=== PATIENT | female | born 1945 | race Caucasian/White ===

== ENCOUNTER 2017-01-17 08:10 | Day surgery (SDC) | payer OTHER, MEDICARE ==
[2017-01-16 14:14] VITALS: BMI 36.8
[2017-01-17] MEDS ORDERED: LIDOCAINE HCL/PF 2% SDV 5ML VIAL ONE (09:08)
[2017-01-17] MEDS ORDERED: PROPOFOL 20 ML ONE ×2 (09:08)
[2017-01-17 09:38] VITALS: TEMP 97.4
[2017-01-17 10:30] VITALS: BP 114/65; PULSE 55
--- NOTE | 2017-01-18 14:07 | PATH ---
Surgical Pathology Report Patient Name: STEVAN IRAHETA [facility]. Rec. #: [id number] /Age/Gender: 1945 (Age: 71) / F Account: [id number] Location: ASU-ENDOSCOPY Taken: 01/17/2017 Received: 01/17/2017 Reported: 01/18/2017 Physicians: Tarun Mckeon M.D. Specimen(s) Received A: BX NORMAL DUODENUM B: BX ANTRUM & GASTRIC BODY C: BX GASTRIC CARDIA & HIATAL HERNIA D: BX GE JUNCTION & DISTAL ESOPHAGUS Clinical History Pre-bariatric surgery evaluation Normal duodenum, body and antrum nodular gastritis, bile reflux gastritis, gastric metaplasia, hiatal hernia with inflammation, inflammatory nodule cardia, r/omalignancy Final Diagnosis A. DUODENUM, BIOPSY: DUODENAL MUCOSA WITHOUT SIGNIFICANT PATHOLOGIC CHANGES. NO HISTOLOGIC EVIDENCE OF GLUTEN SENSITIVE ENTEROPATHY (CELIAC DISEASE). B. STOMACH, ANTRUM AND BODY, BIOPSY: GASTRIC ANTRAL AND OXYNTIC MUCOSA WITH MODERATE CHRONIC GASTRITIS WITH EXTENSIVE INTESTINAL METAPLASIA AND REACTIVE GASTROPATHY. NEGATIVE FOR DYSPLASIA. IMMUNOSTAIN FOR H. PYLORI IS NEGATIVE FOR ORGANISMS. C. CARDIA AND HIATAL HERNIA, BIOPSY: GASTRIC CARDIA-TYPE AND FOCALLY SQUAMOUS MUCOSA WITH MARKED CHRONIC INFLAMMATION, HYPERPLASTIC CHANGE AND FOCAL INTESTINAL METAPLASIA (SEE COMMENT). NEGATIVE FOR DYSPLASIA. IMMUNOSTAIN FOR H. PYLORI IS NEGATIVE FOR ORGANISMS. 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 Endoscopic correlations and follow up are suggested. D. GE JUNCTION AND DISTAL ESOPHAGUS, BIOPSY: SQUAMOUS EPITHELIUM WITH CHRONIC INFLAMMATION AND REFLUX TYPY CHANGES. NO COLUMNAR EPITHELIUM PRESENT (NO INTESTINAL METAPLASIA SLIGHT ESPINOZA'S ESOPHAGUS IDENTIFIED IN THE EXAMINED MATERIAL). Electronically Signed Simon Mcgowan M.D. Gross Description A. Received in formalin, labeled "biopsy normal duodenum" is a osorio, irregular portion of soft tissue measuring 0.4 cm in greatest dimension. The specimen is submitted in toto in one cassette. B. Received in formalin, labeled "biopsy antrum and gastric body" are 7 osorio, irregular portions of soft tissue ranging from 0.1-0.4 cm in greatest dimension. The specimens are submitted in toto in one cassette. C. Received in formalin, labeled "biopsy gastric cardia and hiatal hernia" are 2 osorio, irregular portions of soft tissue averaging 0.3 cm in greatest dimension. The specimens are submitted in toto in one cassette. D. Received in formalin, labeled "biopsy GE junction" are 2 osorio, irregular portions of soft tissue averaging 0.2 cm in greatest dimension. The specimens are submitted in toto in one cassette. 01/17/201701/17/2017
== END 2017-01-17 10:39 | disposition home or self-care (01) ==
LOC: JASU-ENDO 08:10
PROVIDERS: ATTEND Internal Medicine Gastroenterology
PROC: 0DB68ZX Excision of Stomach, Via Natural or Artificial Opening Endoscopic, Diagnostic (ICD-10-PCS; 2017-01-17)
PROC: 0DB58ZX Excision of Esophagus, Via Natural or Artificial Opening Endoscopic, Diagnostic (ICD-10-PCS; 2017-01-17)
PROC: 0DB98ZX Excision of Duodenum, Via Natural or Artificial Opening Endoscopic, Diagnostic (ICD-10-PCS; principal; 2017-01-17 09:00)
DX: Z01.818 Encounter for other preprocedural examination (principal); K29.70 Gastritis, unspecified, without bleeding; K44.9 Diaphragmatic hernia without obstruction or gangrene; K31.89 Other diseases of stomach and duodenum
CPT/HCPCS: 88305-TC; 88342-TC

== ENCOUNTER 2017-01-19 09:54 | Emergency (ER) | payer OTHER, MEDICARE ==
[2017-01-19 10:00] VITALS: TEMP 98.8; BMI 34.2
[2017-01-19] MEDS ORDERED: DEXAMETHASONE SOD PHOSPHATE 10 MG/1 ML VIAL IVPB ONE (10:27)
[2017-01-19] MEDS ORDERED: ONDANSETRON 4 MG/2 ML VIAL ONE (11:00)
--- NOTE | 2017-01-19 11:20 | PDOC ---
History of Present Illness - General Chief Complaint: Rash Stated Complaint: ALLERGIC REACTION Time Seen by Provider: 01/19/17 10:14 History Source: Patient Exam Limitations: No Limitations - History of Present Illness Initial Comments: 01/19/17 11:37 71-year-old female presents to the ED with complaints of generalized pruritic rash and feeling of flushness since this morning. Patient states yesterday he also had a MAXIMUM TEMPERATURE of 101.0. Patient states was placed on omeprazole by her gastrologist 3 days ago after having an endoscopy. 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 Patient denies any other lesions to affected area or similar raised areas. Patient states also did not get any vancomycin recently And has had endoscopy in the past but Prilosec. Timing/Duration: 1-3 hours Severity: moderate Associated Symptoms: reports: rash Past History - Past Medical History Allergies/Adverse Reactions: Allergies Allergy/AdvReac Type Severity Reaction Status Date / Time vancomycin AdvReac Verified 01/19/17 09:55 Home Medications: Ambulatory Orders Atenolol [Tenormin -] 50 mg PO DAILY 06/10/14 Rotigotine [Neupro] 4 mg TD DAILY 06/10/14 Furosemide 40 mg PO DAILY 08/16/16 Metformin HCl 500 mg PO DAILY 08/16/16 Multivitamin [Poly-Vitamin] 1 each PO DAILY 08/16/16 Cholecalciferol (Vitamin D3) [Vitamin D3] 2,000 unit PO DAILY 08/17/16 Pramipexole Di-HCl [Mirapex] 0.75 mg PO HS 08/17/16 Diphenhydramine HCl [Benadryl -] 25 mg PO Q8H PRN #12 capsule 01/19/17 Prednisone [Deltasone -] 40 mg PO DAILY #8 tablet 01/19/17 Ranitidine HCl [Zantac] 150 mg PO DAILY #14 tablet 01/19/17 Anemia: No Asthma: No Cancer: No Cardiac Disorders: Yes ("MILD" MURMUR SINCE CHILDHOOD) CVA: No COPD: No CHF: No Dementia: No Diabetes: No GI Disorders: Yes Disorders: No HTN: Yes Hypercholesterolemia: Yes Liver Disease: Yes (NONALCOHOLIC STEATOHEPATITIS;HEPATIC FIBROSIS;FATTY LIVER) Seizures: No Thyroid Disease: Yes (HYPOTHYROIDISM) - Surgical History Abdominal Surgery: No Appendectomy: Yes Cardiac Surgery: No Cholecystectomy: No Lung Surgery: No Neurologic Surgery: No Orthopedic Surgery: Yes (STACY KNEE REPLACEMENT STACY ROTATOR CUFF REPAIR) - Psycho/Social/Smoking Cessation Hx Suicidal Ideation: No Smoking History: Never smoked Have you smoked in the past 12 months: No Hx Alcohol Use: No Drug/Substance Use Hx: No Substance Use Type: None Hx Substance Use Treatment: No Patient Lives Alone: No Review of Systems - Review of Systems Able to Perform ROS?: Yes Constitutional: Yes: Fever (yesterday 101.0) HEENTM: No: Symptoms Reported Respiratory: No: Symptoms reported Cardiac (ROS): No: Symptoms Reported ABD/GI: No: Symptoms Reported : No: Symptoms Reported Musculoskeletal: No: Symptoms Reported Integumentary: Yes: Erythema, Flushing, Pruritus, Rash Neurological: No: Symptoms reported Endocrine: No: Symptoms Reported Hematologic/Lymphatic: No: Symptoms Reported *Physical Exam - Vital Signs Last Vital Signs Temp Pulse Resp BP Pulse Ox 98.8 F 71 20 145/74 98 01/19/17 09:56 01/19/17 09:56 01/19/17 09:56 01/19/17 09:56 01/19/17 09:56 - Physical Exam General Appearance: Yes: Nourished, Appropriately Dressed. No: Apparent Distress HEENT: positive: Pharynx Normal (no petechiae no erythema). negative: Pale Conjunctivae Neck: positive: Normal Thyroid, Supple. negative: Lymphadenopathy (R), Lymphadenopathy (L) Respiratory/Chest: positive: Lungs Clear, Normal Breath Sounds. negative: Respiratory Distress, Accessory Muscle Use, Stridor, Wheezing Cardiovascular: positive: Regular Rhythm, Regular Rate. negative: Murmur Vascular Pulses: Dorsalis-Pedis (R): 2+, Doralis-Pedis (L): 2+ Gastrointestinal/Abdominal: positive: Normal Bowel Sounds, Soft. negative: Distended, Tenderness Extremity: positive: Normal Capillary Refill, Normal Inspection, Normal Range of Motion Integumentary: positive: Erythema (bilateral arms, face and back), Petechiae ( generalized greater in the extremities) Neurologic: positive: Normal Mood/Affect, Motor Strength 5/5 ED Treatment Course - LABORATORY CBC & Chemistry Diagram: 01/19/17 11:33 01/19/17 11:33 - Medications Given in the ED: ED Medications Discontinued Medications Generic Name Dose Route Start Last Admin Trade Name Aren PRN Reason Stop Dose Admin Dexamethasone Sodium Phosphate 10 mg 01/19/17 10:27 01/19/17 10:44 Decadron Injection - IVPB 01/19/17 10:28 10 mg ONCE ONE Administration Diphenhydramine HCl 25 mg 01/19/17 10:27 01/19/17 10:44 Benadryl Injection - IVPB 01/19/17 10:28 25 mg ONCE ONE Administration Medical Decision Making - Medical Decision Making 01/19/17 12:05 Patient here for pruritic erythematous rash since this morning. Patient states started omeprazole yesterday prescribed by her director medical science after having had endoscopy done 3 days ago. Patient found to have generalized petechiae with erythema greater in the face and neck arms and back. Patient was given steroids and Benadryl in fast track and was sent back here for further evaluation. Patient concerning for DIC secondary to petechiae. Patient ordered coags, labs, playground monitor, and IV access. 01/19/17 14:15 Laboratory Tests 01/19/17 01/19/17 01/19/17 11:33 11:33 11:33 WBC 5.7 Hgb 14.1 Hct 42.4 Neutrophils % 77.5 D INR 0.97 Sodium 138 Potassium 4.0 Chloride 104 Carbon Dioxide 28 Anion Gap 6 L BUN 14 D Creatinine 0.9 Creat Clearance w eGFR > 60 Random Glucose 102 Calcium 8.5 Total Bilirubin 1.1 H D AST 25 D ALT 27 D Albumin 3.3 L Erythematous face and arms and neck has resolved but continues to back. Patient be ordered for prednisone. Case discussed with patient's director medical science, Dr. 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 Patient also be discharged home with prednisone and Benadryl. *DC/Admit/Observation/Transfer Diagnosis at time of Disposition: Allergic reaction Qualifiers: Encounter type: initial encounter Qualified Code(s): T78.40XA - Allergy, unspecified, initial encounter - Discharge Dispostion Disposition: HOME Condition at time of disposition: Improved - Prescriptions Prescriptions: Diphenhydramine HCl [Benadryl -] 25 mg PO Q8H PRN #12 capsule PRN Reason: For Itching Prednisone [Deltasone -] 40 mg PO DAILY #8 tablet Ranitidine HCl [Zantac] 150 mg PO DAILY #14 tablet - Referrals Referrals: Uli Hays MD [Primary Care Provider] - Tarun Mckeon MD [Staff Physician] - - Patient Instructions Printed Discharge Instructions: DI for General Allergic Reactions, DI for Adverse Drug Reaction -- Allergic Additional Instructions: Please take prednisone starting tomorrow since your given your first dose here in the ER. You may also take 25 mg of Benadryl every [address] Mckeon recommended Zantac to begin tomorrow and to follow-up in his office for EGD results.
[2017-01-19] MEDS ORDERED: ONDANSETRON 4 MG/2 ML VIAL IVPB ONE (11:26)
--- NOTE | 2017-01-19 11:26 | PDOC ---
History of Present Illness - General Chief Complaint: Rash Stated Complaint: ALLERGIC REACTION Time Seen by Provider: 01/19/17 10:14 History Source: Patient Exam Limitations: No Limitations - History of Present Illness Initial Comments: 01/19/17 11:21 71 yr female multiple medical problems presents to ER with c/o red rash, itchy started this AM. Pt reports fever 101 last night with chills. Pt recently started on omeprazole yesterday, post endoscopy Monday with . Pt states she has no chest pain no SOB. Timing/Duration: reports: changing over time, getting worse Severity: Yes: severe Location: reports: generalized Respiratory Risk Factors: reports: medications Associated Symptoms: reports: fever, flushing, rash Past History - Past Medical History Allergies/Adverse Reactions: Allergies Allergy/AdvReac Type Severity Reaction Status Date / Time vancomycin AdvReac Verified 01/19/17 09:55 Home Medications: Ambulatory Orders Atenolol [Tenormin -] 50 mg PO DAILY 06/10/14 Rotigotine [Neupro] 4 mg TD DAILY 06/10/14 Furosemide 40 mg PO DAILY 08/16/16 Metformin HCl 500 mg PO DAILY 08/16/16 Multivitamin [Poly-Vitamin] 1 each PO DAILY 08/16/16 Cholecalciferol (Vitamin D3) [Vitamin D3] 2,000 unit PO DAILY 08/17/16 Pramipexole Di-HCl [Mirapex] 0.75 mg PO HS 08/17/16 Diphenhydramine HCl [Benadryl -] 25 mg PO Q8H PRN #12 capsule 01/19/17 Prednisone [Deltasone -] 40 mg PO DAILY #8 tablet 01/19/17 Ranitidine HCl [Zantac] 150 mg PO DAILY #14 tablet 01/19/17 Anemia: No Asthma: No Cancer: No Cardiac Disorders: Yes ("MILD" MURMUR SINCE CHILDHOOD) CVA: No COPD: No CHF: No Dementia: No Diabetes: No GI Disorders: Yes Disorders: No HTN: Yes Hypercholesterolemia: Yes Liver Disease: Yes (NONALCOHOLIC STEATOHEPATITIS;HEPATIC FIBROSIS;FATTY LIVER) Seizures: No Thyroid Disease: Yes (HYPOTHYROIDISM) - Surgical History Abdominal Surgery: No Appendectomy: Yes Cardiac Surgery: No Cholecystectomy: No Lung Surgery: No Neurologic Surgery: No Orthopedic Surgery: Yes (STACY KNEE REPLACEMENT STACY ROTATOR CUFF REPAIR) - Psycho/Social/Smoking Cessation Hx Suicidal Ideation: No Smoking History: Never smoked Have you smoked in the past 12 months: No Hx Alcohol Use: No Drug/Substance Use Hx: No Substance Use Type: None Hx Substance Use Treatment: No Review of Systems - Review of Systems Able to Perform ROS?: Yes Is the patient limited [place] proficient: No Constitutional: Yes: See HPI Integumentary: Yes: Symptoms Reported, Rash *Physical Exam - Vital Signs Last Vital Signs Temp Pulse Resp BP Pulse Ox 98.8 F 71 20 145/74 98 01/19/17 09:56 01/19/17 09:56 01/19/17 09:56 01/19/17 09:56 01/19/17 09:56 - Physical Exam General Appearance: Yes: Nourished, Appropriately Dressed, Obese HEENT: positive: EOMI, CHRISSY, TMs Normal, Other (erythematous mucous membranes) Neck: positive: Supple Respiratory/Chest: positive: Lungs Clear, Normal Breath Sounds Cardiovascular: positive: Regular Rhythm, Regular Rate Extremity: positive: Normal Capillary Refill, Normal Inspection, Normal Range of Motion Integumentary: positive: Rash (generalised head to toe erythematous rash ), Other (petichiae upper arms at the AC) Neurologic: positive: Fully Oriented, Alert, Normal Mood/Affect, Normal Response , Motor Strength 02/03 ED Treatment Course - LABORATORY CBC & Chemistry Diagram: 01/19/17 11:33 01/19/17 11:33 - Medications Given in the ED: ED Medications Discontinued Medications Generic Name Dose Route Start Last Admin Trade Name Freq PRN Reason Stop Dose Admin Dexamethasone Sodium Phosphate 10 mg 01/19/17 10:27 01/19/17 10:44 Decadron Injection - IVPB 01/19/17 10:28 10 mg ONCE ONE Administration Diphenhydramine HCl 25 mg 01/19/17 10:27 01/19/17 10:44 Benadryl Injection - IVPB 01/19/17 10:28 25 mg ONCE ONE Administration Progress Note - Progress Note Progress Note: pt reports severe nausea after decadron and benadryl, will give zofran. Medical Decision Making - Medical Decision Making 01/19/17 11:27 cc: diffuse rash, fever 101 last night recently started omeprazole will transfer to the main ER for further workup possible SJS pt stable aware of pt states he had a phone call regarding this pt . pt placed to bed 11A per charge nurse Marisa. *DC/Admit/Observation/Transfer Diagnosis at time of Disposition: Allergic reaction - Discharge Dispostion Disposition: HOME Condition at time of disposition: Improved - Prescriptions Prescriptions: Diphenhydramine HCl [Benadryl -] 25 mg PO Q8H PRN #12 capsule PRN Reason: For Itching Prednisone [Deltasone -] 40 mg PO DAILY #8 tablet Ranitidine HCl [Zantac] 150 mg PO DAILY #14 tablet - Referrals Referrals: Uli Hays MD [Primary Care Provider] - Tarun Mckeon MD [Staff Physician] - - Patient Instructions Printed Discharge Instructions: DI for General Allergic Reactions, DI for Adverse Drug Reaction -- Allergic Additional Instructions: Please take prednisone starting tomorrow since your given your first dose here in the ER. You may also take 25 mg of Benadryl every [address] Mckeon recommended Zantac to begin tomorrow and to follow-up in his office for EGD results.
[2017-01-19 11:51] LABS: BASOPHIL 0.2 % (0-2.0); EOSINOPHIL 2.4 % (0-4.5); MCH 30.9 pg (25.7-33.7); MCHC 33.2 g/dl (32.0-36.0); MEAN CELL VOLUME 93.1 fl (80-96); MEAN PLT VOLUME 6.7 fl (7.5-11.1); NEUTROPHILS 77.5 % (42.8-82.8); PLATELET COUNT 234 K/MM3 (134-434); RDW 13.8 % (11.6-15.6); WHITE BLOOD COUNT 5.7 K/mm3 (4.0-10.0)
[2017-01-19 12:23] LABS: ALBUMIN 3.3 g/dl (3.4-5.0); ANION GAP 6 (8-16); CALCIUM 8.5 mg/dL (8.5-10.1); CO2 28 mmol/L (21-32); GLUCOSE,RANDOM 102 mg/dL (74-106)
[2017-01-19 12:27] LABS: ALK PHOS 70 U/L (45-117); BILIRUBIN,TOTAL 1.1 mg/dL (0.2-1.0); COCKROFT - GAULT 76.9335; CREATININE 0.9 mg/dL (0.55-1.02); INR 0.97 (0.82-1.09); PROTHROMBIN TIME (PATIENT) 10.7 SEC (9.98-11.88); SGOT/AST 25 U/L (15-37); SGPT/ALT 27 U/L (12-78); TOT PROT 6.4 g/dl (6.4-8.2)
[2017-01-19 12:29] LABS: ACTIVATED PTT 29.7 SECONDS (26.9-34.4)
[2017-01-19] MEDS ORDERED: predniSONE 20 MG TABLET (UD) PO ONE (14:17)
[2017-01-19] MEDS ORDERED: predniSONE 20 MG TABLET (UD) ONE (14:56)
[2017-01-19 15:15] VITALS: BP 136/74; PULSE 70
== END 2017-01-19 15:40 | disposition home or self-care (01) ==
LOC: JER 09:54 → JERFT 09:54 → JER 15:40
PROC: 3E033GC Introduction of Other Therapeutic Substance into Peripheral Vein, Percutaneous Approach (ICD-10-PCS; principal; 2017-01-19)
DX: T78.40XA Allergy, unspecified, initial encounter (principal)
CPT/HCPCS: 36415; 80053; 82784; 85025; 85610; 85730; 99284-25

== ENCOUNTER 2017-09-05 09:54 | Day surgery (SDC) | payer OTHER, MEDICARE ==
[2017-09-04 09:40] VITALS: BMI 32.5
[2017-09-05] MEDS ORDERED: LIDOCAINE 1%/EPI 1:100000 (20 ML MULTI DOSE VIAL) ONE (10:50)
[2017-09-05] MEDS ORDERED: ONDANSETRON 4 MG/2 ML VIAL IVPUSH PRN ×2 (10:52→12:26)
[2017-09-05] MEDS ORDERED: IBUPROFEN 800 MG/8 ML IJ IVPB PRN (10:52)
[2017-09-05] MEDS ORDERED: oxyCODONE HCL 5 MG TABLET PO PRN ×2 (10:52→12:26)
[2017-09-05] MEDS ORDERED: LACTATED RINGERS SOLUTION 1,000 ML IV SCH ×2 (11:00→12:30)
[2017-09-05] MEDS ORDERED: VASOPRESSIN 20 UNITS/ML VIAL IV ONE ×2 (11:18→11:28)
--- NOTE | 2017-09-05 11:23 | OP ---
Operative Note - Note: Operative Date: 09/05/17 Pre-Operative Diagnosis: stress incontinence Operation: mid urethral sling placement Post-Operative Diagnosis: Same as Pre-op Surgeon: Duc Tristan MD. Anesthesia: General Drains & Tubes with Location: white catheter Operative Report Dictated: Yes
[2017-09-05] MEDS ORDERED: LIDOCAINE HCL/PF 2% SDV 5ML VIAL ONE (11:28)
[2017-09-05] MEDS ORDERED: ROCURONIUM BROMIDE 50 MG/5 ML VIAL ONE (11:29)
[2017-09-05] MEDS ORDERED: PROPOFOL 20 ML ONE (11:29)
[2017-09-05] MEDS ORDERED: fentaNYL CITRATE 250 MCG/5 ML VIAL ONE (11:29)
[2017-09-05] MEDS ORDERED: ceFAZolin SODIUM 1 GM VIAL IVPB ONE (11:45)
[2017-09-05] MEDS ORDERED: MIDAZOLAM HCL 2 MG/2 ML SINGLE DOSE VIAL ONE (11:46)
[2017-09-05] MEDS ORDERED: PROMETHAZINE HCL 25 MG/1 ML VIAL IVPB PRN (12:26)
[2017-09-05 14:32] VITALS: TEMP 98.2
[2017-09-05 17:43] LABS: MCH 30.9 pg (25.7-33.7); MCHC 33.1 g/dl (32.0-36.0); MEAN CELL VOLUME 93.4 fl (80-96); MEAN PLT VOLUME 7.1 fl (7.5-11.1); PLATELET COUNT 253 K/MM3 (134-434)
[2017-09-05 19:19] VITALS: BP 114/58; PULSE 70
--- NOTE | 2017-09-06 08:46 | OP ---
DATE OF OPERATION: 09/05/2017 PREOPERATIVE DIAGNOSIS: Stress incontinence. POSTOPERATIVE DIAGNOSIS: Stress incontinence. PROCEDURE: Midurethral sling placement. HISTORY: This is a very pleasant 72-year-old female with a history of stress incontinence. On preop evaluation she was found to have a leak-point pressure of approximately 60 mmHg. We also discussed the fact that she had a large posterior and anterior defect which would require a cystocele and rectocele and enterocele repair, which would require a much more involved surgery. The patient above-stated procedure and defer any treatment of the pelvic prolapse. All questions were answered. Risks and benefits were clearly discussed with the patient. BRIEF OPERATIVE NOTE: The patient was brought into the operating room and placed in supine position. Once general anesthesia was administered, intravenous antibiotics were given. The patient was transferred to dorsal lithotomy position, prepped and draped in sterile fashion. At this time an incision was made approximately 1 cm proximal to the meatus. The anterior vaginal wall was dissected free from the perivesical tissue. Lateral space was created to expose the endopelvic fascia. This was accomplished using blunt and minimal sharp dissection. At this time the Altis sling was placed in standard fashion. A clamp was used to create some space between the sling and the urethra without tension. There was no evidence of active bleeding. She sling was secured in place. At this time a 2-0 Vicryl was used to close the anterior vaginal wall. Please note that a Liang catheter was placed to straight drainage and then suction drainage at the initial point of the procedure. Vaginal packing was applied. The patient was then brought to recovery room in stable and satisfactory condition. HUMERA CARTER M.D. [id number]
--- NOTE | 2017-09-06 15:54 | PATH ---
Surgical Pathology Report Patient Name: STEVAN IRAHETA Med. Rec. #: [id number] /Age/Gender: 1945 (Age: 72) / F Account: [id number] Location: [facility] SURGICAL Taken: 09/05/2017 Received: 09/05/2017 Reported: 09/06/2017 Physicians: Duc Tristan M.D. Specimen(s) Received ANTERIOR VAGINAL MUCOSA Clinical History incontinence Final Diagnosis Anterior vaginal mucosa, resection: Vaginal (squamous) mucosa with no significant pathologic findings. Electronically Signed Brenda Perez M.D. Gross Description Received in formalin labeled "anterior vaginal mucosa," is a 1.4 x 0.9 x 0.7 cm pink-osorio, irregular portion of soft tissue, consistent with vaginal mucosa. [employer] sections are submitted in one cassette. /09/05/201709/05/2017
== END 2017-09-05 18:40 | disposition home or self-care (01) ==
LOC: JASU-SURG 09:54
PROVIDERS: ATTEND Urology
PROC: 0TSD0ZZ Reposition Urethra, Open Approach (ICD-10-PCS; principal; 2017-09-05 12:00)
DX: N39.3 Stress incontinence (female) (male) (principal)
CPT/HCPCS: 36415; 85027; 88302-TC

== ENCOUNTER 2019-07-03 14:15 | Emergency (ER) | payer OTHER, BC ==
[2019-07-03] MEDS ORDERED: KETOROLAC TROMETHAMINE 30 MG/1 ML VIAL IM ONE (14:20)
--- NOTE | 2019-07-03 14:20 | PDOC ---
Rapid Medical Evaluation Time Seen by Provider: 07/03/19 14:17 Medical Evaluation: Allergies Allergy/AdvReac Type Severity Reaction Status Date / Time vancomycin AdvReac Verified 09/05/17 10:24 07/03/19 14:17 CC: lower back pain s/p bending 3 days ago PE: No focal findings Orders: toradol Patient will proceed to ER for further evaluation. Discharge Disposition - Diagnosis Back pain - Referrals - Patient Instructions - Post Discharge Activity
[2019-07-03 14:22] VITALS: BP 113/49; PULSE 65; TEMP 98.4; BMI 34.0
[2019-07-03] MEDS ORDERED: KETOROLAC TROMETHAMINE 30 MG/1 ML VIAL ONE (15:05)
[2019-07-03] MEDS ORDERED: METHOCARBAMOL 500 MG TABLET PO ONE (15:13)
[2019-07-03] MEDS ORDERED: LIDOCAINE 5% TOPICAL PATCH TP ONE (15:13)
--- NOTE | 2019-07-03 15:18 | PDOC ---
History of Present Illness - General Chief Complaint: Back Pain Stated Complaint: LOWER BACK PAIN RIGHT SIDE SI Time Seen by Provider: 07/03/19 14:17 History Source: Patient Exam Limitations: No Limitations Past History - Travel Traveled outside of the country in the last 30 days: No Close contact w/someone who was outside of country & ill: No - Past Medical History Allergies/Adverse Reactions: Allergies Allergy/AdvReac Type Severity Reaction Status Date / Time vancomycin AdvReac Verified 07/03/19 14:22 Home Medications: Ambulatory Orders Atenolol [Tenormin -] 50 mg PO DAILY 06/10/14 Rotigotine [Neupro] 4 mg TD DAILY 06/10/14 Furosemide 40 mg PO DAILY 08/16/16 Multivitamin [Poly-Vitamin] 1 each PO DAILY 08/16/16 metFORMIN HCL [Metformin HCl] 500 mg PO DAILY 08/16/16 Pramipexole Di-HCl [Mirapex] 0.75 mg PO HS 08/17/16 Ibandronate Sodium 150 mg PO MONTHLY 09/04/17 Ranitidine HCl [Zantac] 150 mg PO PRN PRN 09/04/17 Methocarbamol [Robaxin -] 500 mg PO BID #14 tablet 07/03/19 Naproxen [Naprosyn -] 500 mg PO BID #14 tablet 07/03/19 Anemia: No Asthma: No Cancer: No Cardiac Disorders: Yes ("MILD" MURMUR SINCE CHILDHOOD) CVA: No COPD: No CHF: No Dementia: No Diabetes: No GI Disorders: Yes Disorders: No HTN: Yes Hypercholesterolemia: Yes Liver Disease: Yes (NONALCOHOLIC STEATOHEPATITIS;HEPATIC FIBROSIS;FATTY LIVER) Seizures: No Thyroid Disease: Yes (HYPOTHYROIDISM) - Surgical History Abdominal Surgery: No Appendectomy: Yes Cardiac Surgery: No Cholecystectomy: No Lung Surgery: No Neurologic Surgery: No Orthopedic Surgery: Yes (STACY KNEE REPLACEMENT STACY ROTATOR CUFF REPAIR) - Immunization History Immunization Up to Date: Yes - Psycho Social/Smoking Cessation Hx Smoking History: Never smoked Have you smoked in the past 12 months: No Information on smoking cessation initiated: No Hx Alcohol Use: No Drug/Substance Use Hx: No Substance Use Type: None Hx Substance Use Treatment: No Review of Systems - Review of Systems Able to Perform ROS?: Yes Comments:: 07/03/19 15:27 CONSTITUTIONAL: Absent: fever, chills, diaphoresis, generalized weakness, malaise, loss of appetite GASTROINTESTINAL: Absent: abdominal pain, abdominal distension, nausea, vomiting, diarrhea, constipation, melena, hematochezia GENITOURINARY: Absent: dysuria, frequency, urgency, hesitancy, hematuria, flank pain, genital pain MUSCULOSKELETAL: Present: R low back pain Absent: arthralgia, joint swelling SKIN: Absent: rash, itching, pallor NEUROLOGIC: Absent: headache, focal weakness or paresthesias, dizziness, unsteady gait, seizure, mental status changes, bladder or bowel incontinence PSYCHIATRIC: Absent: anxiety, depression, suicidal or homicidal ideation, hallucinations. Is the patient limited [place] proficient: No *Physical Exam - Vital Signs Last Vital Signs Temp Pulse Resp BP Pulse Ox 98.4 F 65 19 113/49 L 95 07/03/19 14:18 07/03/19 14:18 07/03/19 14:18 07/03/19 14:18 07/03/19 14:18 - Physical Exam Comments: 07/03/19 15:28 GENERAL: Well developed, well nourished. Awake and alert. No acute distress. NECK: Supple. Full ROM. No JVD. Carotid pulses 2+ and symmetric, without bruits. No thyromegaly. No lymphadenopathy. ABDOMINAL: Soft. Non-tender. Non-distended. No rebound or guarding. No organomegaly. Normoactive bowel sounds. MUSCULOSKELETAL TTP of the R lateral paraspinous muscles, L3-L5, with palpable knot consistent with muscle spasm. (-) straight leg raise testing. No midline tenderness. Normal range of motion at all joints. No bony deformities or tenderness. No CVA tenderness. EXTREMITIES: No cyanosis. No clubbing. No edema. No calf tenderness. SKIN: Warm and dry. Normal capillary refill. No rashes. No jaundice. NEUROLOGICAL: Alert, awake, appropriate. Cranial nerves 2-12 intact. No deficits to light touch and temperature in face, upper extremities and lower extremities. No motor deficits in the in face, upper extremities and lower extremities. Normoreflexic in the upper and lower extremities. Normal speech. Toes are down- going bilaterally. Gait is normal without ataxia. PSYCHIATRIC: Cooperative. Good eye contact. Appropriate mood and affect. Medical Decision Making - Medical Decision Making 07/03/19 15:28 The patient is a 74-year-old female who presents to the ER today for right lower back pain. She states the pain started 3 days ago when she stood up from washing her tub. She states she twisted her back and noticed the pain started. She states the pain is gotten increasingly worse over the past 3 days. She states the hydrocodone last night before bed which helped with her pain. She states that now it hurts to walk or stand for too long. Denies fevers, chills, numbness and tingling and weakness in the affected extremities, saddle anesthesia and bladder bowel incontinence. A/P: Low back pain -Pt with TTP of the R lateral paraspinous muscles, L3-L5, with palpable knot consistent with muscle spasm. (-) straight leg raise testing. No midline tenderness. -No trauma, or fever. No saddle anesthesia or bladder/bowel incontinence. No CVA tenderness. -Pt is neurologically intact on exam with no focal findings. -X-ray shows hardware in L5-L3 s/p laminectomy 5 years ago. No new or acute findings. -Toradol given with relief of symptoms -DC home. Ortho follow up given for if symptoms do not resolve. -I discussed the physical exam findings, ancillary test results and final diagnoses with the patient. I answered all of the patient's questions. The patient was satisfied with the care received and felt comfortable with the discharge plan and treatment plan. The Patient agrees to follow up with the primary care physician/specialist within 24-72 hours. Return precautions were given. Discharge - Discharge Information Problems reviewed: Yes Clinical Impression/Diagnosis: Back pain Qualifiers: Back pain location: low back pain Chronicity: acute Back pain laterality: right Sciatica presence: without sciatica Qualified Code(s): M54.5 - Low back pain Condition: Stable Disposition: HOME - Admission No - Follow up/Referral Referrals: Uli Hays MD [Primary Care Provider] - Chas Echols MD, FAANS [Staff Physician] - - Patient Discharge Instructions Patient Printed Discharge Instructions: DI for Low Back Pain Additional Instructions: You have low back pain due to a muscle spasm. Please take the naproxen twice a day starting tomorrow. You are given a long-acting anti-inflammatory in the ER today. You were also prescribed Robaxin. Please take this medication twice a day. Do not drive after taking this medication as it may make you sleepy. You may use warm compresses on your back to help with her symptoms. Please follow- up with your primary care doctor. If your symptoms do not resolve in 3-5 days, follow-up with orthopedics. A referral has been provided for you. Return to the emergency department if you have worsening back pain, bladder or bowel incontinence, numbness and tingling in her legs, changes in the way you walk, or any new or worsening symptoms. - Post Discharge Activity
[2019-07-03] MEDS ORDERED: METHOCARBAMOL 500 MG TABLET ONE ×2 (15:21→15:40)
[2019-07-03] MEDS ORDERED: LIDOCAINE 5% TOPICAL PATCH ONE (15:21)
== END 2019-07-03 15:47 | disposition home or self-care (01) ==
LOC: JERFT 14:15
PROC: 3E0233Z Introduction of Anti-inflammatory into Muscle, Percutaneous Approach (ICD-10-PCS; principal; 2019-07-03)
DX: M54.5 Low back pain (principal); Z88.1 Allergy status to other antibiotic agents; R01.1 Cardiac murmur, unspecified; I10 Essential (primary) hypertension; E78.00 Pure hypercholesterolemia, unspecified; E03.9 Hypothyroidism, unspecified; K76.0 Fatty (change of) liver, not elsewhere classified; K62.9 Disease of anus and rectum, unspecified; Z79.84 Long term (current) use of oral hypoglycemic drugs
CPT/HCPCS: 72100-TC-FY; 99281-25

== ENCOUNTER 2021-12-07 13:47 | Emergency (ER) | payer OTHER ==
[2021-12-07 14:03] VITALS: BP 136/60; PULSE 66; TEMP 98.6; BMI 33.9
[2021-12-07] MEDS ORDERED: ACETAMINOPHEN 325 MG TABLET (FP) PO ONE (17:44)
[2021-12-07] MEDS ORDERED: ACETAMINOPHEN 500 MG TABLET (FP) ONE (17:50)
== END 2021-12-07 20:32 | disposition home or self-care (01) ==
LOC: JER 13:47
DX: M54.2 Cervicalgia (principal); V89.2XXA Person injured in unspecified motor-vehicle accident, traffic, initial encounter
CPT/HCPCS: 70450-TC; 71250-TC; 72125-TC; 93005; 93010; 99285-25

== ENCOUNTER 2022-02-26 18:46 | Inpatient (IN) | payer OTHER ==
[2022-02-26] MEDS ORDERED: ACETAMINOPHEN 1000 MG/100 ML BAG IVPB ONE (19:52)
[2022-02-26] MEDS ORDERED: ACETAMINOPHEN INJECTION 100 ML IVPB ONE (19:55)
[2022-02-26] MEDS ORDERED: AZITHROMYCIN IVPB 500 MG in DEXTROSE 5%-WATER - 250 ML IVPB ONE (20:27)
[2022-02-26] MEDS ORDERED: CEFTRIAXONE 1 GM in DEXTROSE 5%-WATER - 100 ML IVPB ONE (20:27)
[2022-02-26 20:30] LABS: BASO % 0.4 % (0-2.0); EOS % 0.5 % (0-4.5); HEMATOCRIT 40.9 % (32.4-45.2); HEMOGLOBIN 13.9 GM/dL (10.7-15.3); LYMPH % 16.4 % (8-40); MCH 30.8 pg (25.7-33.7); MCHC 34.1 g/dl (32.0-36.0); MEAN CELL VOLUME 90.4 fl (80-96); MEAN PLT VOLUME 6.8 fl (7.5-11.1); MONO % 11.2 % (3.8-10.2); NEUT % 71.5 % (42.8-82.8); PLATELET COUNT 231 10^3/uL (134-434); RBC 4.52 M/mm3 (3.60-5.2); RDW 14.2 % (11.6-15.6); WHITE BLOOD COUNT 4.9 K/mm3 (4.0-10.0)
[2022-02-26 20:34] LABS: VENOUS BASE EXCESS -1.3 mmol/L (-2-2); VENOUS O2 SATURATION 56.1 % (70-80); VENOUS PCO2 41.3 mmHg (38-52); VENOUS PH 7.379 (7.310-7.410)
[2022-02-26 20:41] LABS: INR 1.05 (0.83-1.09); PROTHROMBIN TIME (PATIENT) 12.1 SEC (9.7-13.0)
[2022-02-26 20:44] LABS: ACTIVATED PTT 31.4 SECONDS (25.2-36.5)
[2022-02-26] MEDS ORDERED: AZITHROMYCIN IVPB 500 MG/250 ML BAG IVPB ONE (20:49)
[2022-02-26] MEDS ORDERED: CEFTRIAXONE 1 GM/50 ML BAG ONE (20:49)
[2022-02-26 20:58] LABS: CHLORIDE 105 mmol/L (98-107); SODIUM 139 mmol/L (136-145)
[2022-02-26 21:01] LABS: ALBUMIN 3.2 g/dl (3.4-5.0); ANION GAP 7 MMOL/L (8-16); BLOOD UREA NITROGEN 8.7 mg/dL (7-18); CO2 27 mmol/L (21-32); GLUCOSE,RANDOM 83 mg/dL (74-106)
[2022-02-26 21:04] LABS: CREATININE 0.8 mg/dL (0.55-1.3); SGOT/AST 28 U/L (15-37); SGPT/ALT 26 U/L (13-61)
[2022-02-26 21:05] LABS: TOT PROT 6.5 g/dl (6.4-8.2)
[2022-02-26 21:07] LABS: ALK PHOS 66 U/L (45-117)
[2022-02-26] MEDS ORDERED: DEXAMETHASONE SOD PHOSPHATE 20 MG/5 ML VIAL IVPB ONE (21:15)
[2022-02-26] MEDS ORDERED: DEXAMETHASONE SOD PHOSPHATE 10 MG/1 ML VIAL ONE (21:26)
[2022-02-26] MEDS ORDERED: REMDESIVIR 200 MG in SODIUM CHLORIDE 250 ML IVPB ONE (22:32)
[2022-02-26] MEDS ORDERED: ALBUTEROL SO4 HFA INHALER IH PRN (22:32)
[2022-02-26] MEDS ORDERED: HEPARIN NA (PORCINE) 5,000 UNITS/ML 1ML VIAL ONE (22:35)
[2022-02-26] MEDS: HEPARIN NA (PORCINE) 5,000 UNITS/ML 1ML VIAL SQ SCH (22:44)
[2022-02-26 22:50] LABS: EPI CELLS >36 /uL (0-25.1); HYALINE CASTS 27 /uL (0-3.1); PH,URINE 5.5 (5.0-8.0); URINE APPEARANCE TURBID; URINE BACTERIA 8085 /uL (0-1359); URINE BILIRUBIN NEGATIVE (NEGATIVE); URINE COLOR YELLOW; URINE GLUCOSE (UA) NEGATIVE (NEGATIVE); URINE KETONE NEGATIVE (NEGATIVE); URINE LEUK ESTERASE 2+ (NEGATIVE); URINE NITRITE NEGATIVE (NEGATIVE); URINE PROTEIN TRACE (NEGATIVE); URINE RBC 28 /uL (0-23.9); URINE UROBILINOGEN 0.2 mg/dL (0.2-1.0); URINE WBC 738 /uL (0-25.8)
[2022-02-26] MEDS ORDERED: PARoxetine HCL 10 MG TABLET PO SCH ×2 (22:50→22:55)
[2022-02-26 22:59] LABS: BLOOD UREA NITROGEN 10.2 mg/dL (7-18); CALCIUM 8.6 mg/dL (8.5-10.1)
[2022-02-27] MEDS: BUDESONIDE/FORMETEROL FUMARATE 80/4.5 mcg INHALER IH SCH ×3 (00:06→21:18)
[2022-02-27 02:00] VITALS: BMI 34.7
[2022-02-27] MEDS ORDERED: ACETAMINOPHEN 325 MG TABLET (FP) PO PRN (03:26)
[2022-02-27] MEDS: HEPARIN NA (PORCINE) 5,000 UNITS/ML 1ML VIAL SQ SCH ×3 (06:38→21:17)
[2022-02-27] MEDS: INSULIN SLIDING SCALE (NOVOLOG) 1 VIAL SQ SCH ×3 (06:38→16:30)
[2022-02-27] MEDS ORDERED: DEXTROSE 5%-WATER - 50 ML IVPB ONE (09:16)
[2022-02-27] MEDS ORDERED: cefTRIAXone SODIUM 1 GM VIAL ONE (09:16)
[2022-02-27] MEDS: ATENOLOL 50 MG TABLET (FP) PO SCH (09:31)
[2022-02-27] MEDS: FUROSEMIDE 40 MG TABLET (FP) PO SCH (09:31)
[2022-02-27] MEDS: DEXAMETHASONE SOD PHOSPHATE 10 MG/1 ML VIAL IVPUSH SCH (09:31)
[2022-02-27] MEDS: FAMOTIDINE 20 MG/50 ML IVPB 20 MG/50 ML MG IVPB SCH ×2 (09:31→21:17)
[2022-02-27] MEDS: PRAMIPEXOLE DIHYDROCHLORIDE 0.5 MG TABLET PO SCH (09:32)
[2022-02-27] MEDS: CEFTRIAXONE 1 GM in DEXTROSE 5%-WATER - 50 ML IVPB SCH (09:43)
[2022-02-27 09:48] LABS: BASO % 0.1 % (0-2.0); HEMATOCRIT 43.6 % (32.4-45.2); HEMOGLOBIN 14.6 GM/dL (10.7-15.3); LYMPH % 13.1 % (8-40); MCH 30.6 pg (25.7-33.7); MCHC 33.4 g/dl (32.0-36.0); MEAN CELL VOLUME 91.6 fl (80-96); MEAN PLT VOLUME 7.3 fl (7.5-11.1); MONO % 5.6 % (3.8-10.2); NEUT % 81.2 % (42.8-82.8); PLATELET COUNT 245 10^3/uL (134-434); RBC 4.76 M/mm3 (3.60-5.2); RDW 14.1 % (11.6-15.6); WHITE BLOOD COUNT 5.5 K/mm3 (4.0-10.0)
[2022-02-27] MEDS ORDERED: AZITHROMYCIN IVPB 500 MG in DEXTROSE 5%-WATER - 250 ML IVPB SCH (10:00)
[2022-02-27 10:08] LABS: ALBUMIN 3.6 g/dl (3.4-5.0); BLOOD UREA NITROGEN 12.4 mg/dL (7-18)
[2022-02-27 10:10] LABS: CALCIUM 8.7 mg/dL (8.5-10.1); MAGNESIUM 2.3 mg/dL (1.8-2.4)
[2022-02-27 10:11] LABS: CREATININE 0.9 mg/dL (0.55-1.3); PHOSPHOROUS 3.8 mg/dL (2.5-4.9)
[2022-02-27 10:12] LABS: BILIRUBIN,TOTAL 0.6 mg/dL (0.2-1)
[2022-02-27 10:13] LABS: TOT PROT 6.9 g/dl (6.4-8.2)
[2022-02-27] MEDS ORDERED: AZITHROMYCIN IVPB 500 MG/250 ML BAG IVPB SCH (11:10)
[2022-02-27] MEDS ORDERED: INSULIN (NOVOLOG) ASPART 100 UNITS/ML 10ML VIAL ONE (11:24)
[2022-02-27] MEDS: guaiFENesin/D-M SUGAR-FREE/ACLHOL-FREE 118 ML BOTTLE PO PRN ×2 (11:32→18:16)
[2022-02-27] MEDS: PRAMIPEXOLE DIHYDROCHLORIDE 0.25 MG TABLET PO SCH (21:17)
[2022-02-27] MEDS: AZITHROMYCIN IVPB 500 MG/250 ML BAG IVPB SCH (21:51)
[2022-02-27] MEDS ORDERED: PARoxetine HCL 10 MG TABLET PO SCH (22:00)
[2022-02-27] MEDS: REMDESIVIR 100 MG in SODIUM CHLORIDE 250 ML IVPB SCH (23:00)
[2022-02-28] MEDS: HEPARIN NA (PORCINE) 5,000 UNITS/ML 1ML VIAL SQ SCH ×3 (06:09→21:41)
[2022-02-28] MEDS: INSULIN SLIDING SCALE (NOVOLOG) 1 VIAL SQ SCH ×3 (06:10→17:18)
[2022-02-28] MEDS: guaiFENesin/D-M SUGAR-FREE/ACLHOL-FREE 118 ML BOTTLE PO PRN (06:18)
[2022-02-28] MEDS ORDERED: cefTRIAXone SODIUM 1 GM VIAL ONE (09:58)
[2022-02-28] MEDS ORDERED: DEXTROSE 5%-WATER - 50 ML IVPB ONE (09:58)
[2022-02-28] MEDS: FAMOTIDINE 20 MG/50 ML IVPB 20 MG/50 ML MG IVPB SCH ×2 (10:01→21:42)
[2022-02-28] MEDS: FUROSEMIDE 40 MG TABLET (FP) PO SCH (10:01)
[2022-02-28] MEDS: PRAMIPEXOLE DIHYDROCHLORIDE 0.5 MG TABLET PO SCH (10:01)
[2022-02-28] MEDS: CEFTRIAXONE 1 GM in DEXTROSE 5%-WATER - 50 ML IVPB SCH (10:01)
[2022-02-28] MEDS: DEXAMETHASONE SOD PHOSPHATE 10 MG/1 ML VIAL IVPUSH SCH (10:01)
[2022-02-28] MEDS: ATENOLOL 50 MG TABLET (FP) PO SCH (10:01)
[2022-02-28] MEDS: BUDESONIDE/FORMETEROL FUMARATE 80/4.5 mcg INHALER IH SCH ×2 (10:19→21:42)
[2022-02-28 11:17] LABS: HEMATOCRIT 43.3 % (32.4-45.2); HEMOGLOBIN 14.4 GM/dL (10.7-15.3); MCH 30.3 pg (25.7-33.7); MCHC 33.2 g/dl (32.0-36.0); MEAN CELL VOLUME 91.2 fl (80-96); MEAN PLT VOLUME 7.2 fl (7.5-11.1); PLATELET COUNT 267 10^3/uL (134-434); RBC 4.75 M/mm3 (3.60-5.2); WHITE BLOOD COUNT 9.4 K/mm3 (4.0-10.0)
[2022-02-28 11:34] LABS: BLOOD UREA NITROGEN 18.7 mg/dL (7-18)
[2022-02-28 11:37] LABS: CREATININE 0.9 mg/dL (0.55-1.3)
[2022-02-28] MEDS: PRAMIPEXOLE DIHYDROCHLORIDE 0.25 MG TABLET PO SCH (21:42)
[2022-02-28] MEDS: AZITHROMYCIN IVPB 500 MG/250 ML BAG IVPB SCH (22:23)
[2022-02-28] MEDS: REMDESIVIR 100 MG in SODIUM CHLORIDE 250 ML IVPB SCH (23:37)
[2022-03-01] MEDS: HEPARIN NA (PORCINE) 5,000 UNITS/ML 1ML VIAL SQ SCH ×3 (06:22→22:43)
[2022-03-01] MEDS: INSULIN SLIDING SCALE (NOVOLOG) 1 VIAL SQ SCH ×3 (06:25→16:36)
[2022-03-01 09:58] LABS: HEMATOCRIT 41.4 % (32.4-45.2); HEMOGLOBIN 14.1 GM/dL (10.7-15.3); MCH 30.7 pg (25.7-33.7); MEAN CELL VOLUME 90.2 fl (80-96); MEAN PLT VOLUME 7.4 fl (7.5-11.1); PLATELET COUNT 268 10^3/uL (134-434); RBC 4.59 M/mm3 (3.60-5.2); RDW 14.3 % (11.6-15.6)
[2022-03-01 10:24] LABS: BLOOD UREA NITROGEN 22.4 mg/dL (7-18)
[2022-03-01 10:28] LABS: CREATININE 0.8 mg/dL (0.55-1.3)
[2022-03-01] MEDS ORDERED: cefTRIAXone SODIUM 1 GM VIAL ONE (10:40)
[2022-03-01] MEDS ORDERED: DEXTROSE 5%-WATER - 50 ML IVPB ONE (10:41)
[2022-03-01] MEDS: DEXAMETHASONE SOD PHOSPHATE 10 MG/1 ML VIAL IVPUSH SCH (10:46)
[2022-03-01] MEDS: ATENOLOL 50 MG TABLET (FP) PO SCH (10:48)
[2022-03-01] MEDS: FUROSEMIDE 40 MG TABLET (FP) PO SCH (10:48)
[2022-03-01] MEDS: FAMOTIDINE 20 MG/50 ML IVPB 20 MG/50 ML MG IVPB SCH ×2 (10:48→22:44)
[2022-03-01] MEDS: PRAMIPEXOLE DIHYDROCHLORIDE 0.5 MG TABLET PO SCH (10:48)
[2022-03-01] MEDS: CEFTRIAXONE 1 GM in DEXTROSE 5%-WATER - 50 ML IVPB SCH (10:48)
[2022-03-01] MEDS: BUDESONIDE/FORMETEROL FUMARATE 80/4.5 mcg INHALER IH SCH ×2 (10:55→22:44)
[2022-03-01 12:11] LABS: BILIRUBIN,DIRECT 0.1 mg/dL (0.0-0.2)
[2022-03-01 12:13] LABS: BILIRUBIN,TOTAL 0.4 mg/dL (0.2-1)
[2022-03-01] MEDS: guaiFENesin/D-M SUGAR-FREE/ACLHOL-FREE 118 ML BOTTLE PO PRN (13:32)
[2022-03-01] MEDS: PRAMIPEXOLE DIHYDROCHLORIDE 0.25 MG TABLET PO SCH (22:44)
[2022-03-01] MEDS: REMDESIVIR 100 MG in SODIUM CHLORIDE 250 ML IVPB SCH (23:29)
[2022-03-01] MEDS: AZITHROMYCIN IVPB 500 MG/250 ML BAG IVPB SCH (23:50)
[2022-03-02] MEDS: HEPARIN NA (PORCINE) 5,000 UNITS/ML 1ML VIAL SQ SCH ×2 (06:29→13:37)
[2022-03-02] MEDS: INSULIN SLIDING SCALE (NOVOLOG) 1 VIAL SQ SCH ×2 (06:29→12:18)
[2022-03-02 09:08] LABS: BASO % 0.1 % (0-2.0); EOS % 0.1 % (0-4.5); HEMATOCRIT 39.9 % (32.4-45.2); HEMOGLOBIN 13.4 GM/dL (10.7-15.3); LYMPH % 30.9 % (8-40); MCH 30.2 pg (25.7-33.7); MCHC 33.6 g/dl (32.0-36.0); MEAN PLT VOLUME 7.6 fl (7.5-11.1); MONO % 10.1 % (3.8-10.2); NEUT % 58.8 % (42.8-82.8); PLATELET COUNT 258 10^3/uL (134-434); RBC 4.44 M/mm3 (3.60-5.2); RDW 13.8 % (11.6-15.6); WHITE BLOOD COUNT 6.5 K/mm3 (4.0-10.0)
[2022-03-02 09:56] LABS: BILIRUBIN,TOTAL 0.6 mg/dL (0.2-1)
[2022-03-02 10:01] LABS: ALBUMIN 3.4 g/dl (3.4-5.0)
[2022-03-02 10:03] LABS: CREATININE 0.8 mg/dL (0.55-1.3)
[2022-03-02 10:04] LABS: BLOOD UREA NITROGEN 24.7 mg/dL (7-18)
[2022-03-02 10:05] LABS: TOT PROT 6.5 g/dl (6.4-8.2)
[2022-03-02] MEDS ORDERED: DEXTROSE 5%-WATER - 50 ML IVPB ONE (10:17)
[2022-03-02] MEDS ORDERED: cefTRIAXone SODIUM 1 GM VIAL ONE (10:17)
[2022-03-02] MEDS: PRAMIPEXOLE DIHYDROCHLORIDE 0.5 MG TABLET PO SCH (10:24)
[2022-03-02] MEDS: ATENOLOL 50 MG TABLET (FP) PO SCH (10:24)
[2022-03-02] MEDS: FUROSEMIDE 40 MG TABLET (FP) PO SCH (10:24)
[2022-03-02] MEDS: DEXAMETHASONE SOD PHOSPHATE 10 MG/1 ML VIAL IVPUSH SCH (10:24)
[2022-03-02] MEDS: CEFTRIAXONE 1 GM in DEXTROSE 5%-WATER - 50 ML IVPB SCH (10:25)
[2022-03-02] MEDS: FAMOTIDINE 20 MG/50 ML IVPB 20 MG/50 ML MG IVPB SCH (10:25)
[2022-03-02] MEDS: BUDESONIDE/FORMETEROL FUMARATE 80/4.5 mcg INHALER IH SCH (10:28)
[2022-03-02] MEDS ORDERED: REMDESIVIR 100 MG in SODIUM CHLORIDE 270 ML IVPB ONE (14:00)
[2022-03-02 14:34] VITALS: BP 102/55; PULSE 55; TEMP 98.7
== END 2022-03-02 17:16 | disposition home or self-care (01) | DRG 177 ==
LOC: JER 18:46 → JERBED 21:34 → J6S 02-27 01:45
PROVIDERS: ADMIT Hospitalist; ATTEND Internal Medicine
PROC: XW033E5 Introduction of Remdesivir Anti-infective into Peripheral Vein, Percutaneous Approach, New Technology Group 5 (ICD-10-PCS; principal; 2022-02-26)
DX: U07.1 COVID-19 (principal); J96.01 Acute respiratory failure with hypoxia; J12.82 Pneumonia due to coronavirus disease 2019; N39.0 Urinary tract infection, site not specified; E11.9 Type 2 diabetes mellitus without complications; G25.81 Restless legs syndrome; I10 Essential (primary) hypertension; L65.9 Nonscarring hair loss, unspecified; E03.9 Hypothyroidism, unspecified; K76.0 Fatty (change of) liver, not elsewhere classified; L40.9 Psoriasis, unspecified
CPT/HCPCS: 0241U-QW; 36415; 71045-TC-FY; 80048; 80053; 81003; 82247; 82248; 82550; 82553; 82803; 82962; 83605; 83735; 84100; 84450; 84460; 84484; 85025; 85027; 85610; 85730; 86850; 86900; 86901; 87040; 87077; 87086; 93005; 93010; 93971-TC; 94761; 99285-25; C9399; J1100; J1644

== ENCOUNTER 2022-06-13 06:08 | Inpatient (IN) | payer OTHER ==
[2022-06-09 15:47] VITALS: BMI 36.6
[~2022-06-13 06:08] MED LIST: TRANEXAMIC ACID 1000 MG/10 ML VIAL IVPB ONE; VANCOMYCIN 1,000 MG VIAL (RESTRICTED TO ID ONLY) IVPB ONE
[2022-06-13] MEDS ORDERED: CEFAZOLIN 2 GM in DEXTROSE 5%-WATER - 50 ML IVPB ONE (06:42)
[2022-06-13] MEDS ORDERED: MIDAZOLAM HCL 2 MG/2 ML SINGLE DOSE VIAL ONE (07:13)
[2022-06-13] MEDS ORDERED: PROPOFOL 40 ML ONE (07:13)
[2022-06-13] MEDS ORDERED: MAGNESIUM HYDROX 2400MG/30ML ORAL SUSPENSION 30 ML CUP PO PRN (07:24)
[2022-06-13] MEDS ORDERED: ONDANSETRON 4 MG/2 ML VIAL IVPUSH PRN ×2 (07:24→10:53)
[2022-06-13] MEDS ORDERED: MAG HYDROX/AL HYDROX/SIMETH 30 ML UNIT-DOSE CUP PO PRN (07:24)
[2022-06-13] MEDS ORDERED: LACTATED RINGERS SOLUTION 1,000 ML IV SCH ×2 (07:30→11:00)
[2022-06-13] MEDS ORDERED: TRANEXAMIC ACID 1000 MG/10 ML VIAL IVPUSH ONE (07:30)
[2022-06-13] MEDS ORDERED: ROPIVACAINE HCL/PF 100 MG/20 ML VIAL ONE (07:31)
[2022-06-13] MEDS ORDERED: VANCOMYCIN 1,000 MG VIAL (RESTRICTED TO ID ONLY) ONE (07:33)
[2022-06-13] MEDS ORDERED: ROCURONIUM BROMIDE 50 MG/5 ML SYRINGE ONE ×2 (07:33→07:34)
[2022-06-13] MEDS ORDERED: ceFAZolin SODIUM 1 GM VIAL ONE (08:53)
[2022-06-13] MEDS ORDERED: DEXAMETHASONE SOD PHOSPHATE 4 MG/1 ML VIAL ONE (08:53)
[2022-06-13] MEDS ORDERED: TRANEXAMIC ACID 1000 MG/10 ML VIAL IVPB ONE (09:45)
[2022-06-13] MEDS ORDERED: ACETAMINOPHEN INJECTION 100 ML IVPB ONE ×2 (09:47→10:23)
[2022-06-13] MEDS ORDERED: VANCOMYCIN 1,000 MG VIAL (RESTRICTED TO ID ONLY) IVPB ONE (09:52)
[2022-06-13] MEDS ORDERED: NEOSTIGMINE METHYLSULFATE 0.5 MG/1 ML - 10 ML MDV ONE (09:55)
[2022-06-13] MEDS ORDERED: GLYCOPYRROLATE 0.2 MG/1 ML VIAL ONE (09:57)
[2022-06-13] MEDS: FENTANYL CITRATE/PF 50 MCG/ML VIAL ONE ×2 (10:40→10:51)
[2022-06-13] MEDS ORDERED: oxyCODONE HCL 5 MG TABLET PO PRN ×2 (10:53)
[2022-06-13] MEDS: ACETAMINOPHEN 1000 MG/100 ML BAG IVPB ONE ×2 (10:57→13:10)
[2022-06-13] MEDS: KETOROLAC TROMETHAMINE 30 MG/1 ML VIAL IVPUSH SCH ×3 (11:12→17:18)
[2022-06-13] MEDS: MULTIVITAMINS (DAILY MVI) TABLET (FP) PO SCH (13:09)
[2022-06-13] MEDS: FLUTICASONE/UMECLIDIN/VILANTER(100-62.5-25 TRELEGY ELLIPTA) INAHLER IH SCH (13:10)
[2022-06-13] MEDS: INSULIN SLIDING SCALE (NOVOLOG) 1 VIAL SQ SCH ×3 (13:10→22:32)
[2022-06-13] MEDS: CEFAZOLIN SODIUM 2 GM in DEXTROSE 5%-WATER 100 ML IVPB SCH ×2 (16:55→23:47)
[2022-06-13] MEDS: ACETAMINOPHEN 1000 MG/100 ML BAG IVPB SCH ×2 (17:16→23:48)
[2022-06-13] MEDS ORDERED: ACETAMINOPHEN 1000 MG/100 ML BAG IVPB SCH (19:00)
[2022-06-13] MEDS ORDERED: PRAMIPEXOLE DIHYDROCHLORIDE 1 MG TABLET PO SCH (22:00)
[2022-06-13] MEDS: SENNOSIDES/DOCUSATE COMBO (SENNA PLUS) TABLET (UD) PO SCH (22:25)
[2022-06-13] MEDS: oxyCODONE HCL 10 MG SUSTAINED ACTING TABLET PO SCH (22:26)
[2022-06-14 06:23] VITALS: BP 91/43; PULSE 19; RESP 52; TEMP 97.9
[2022-06-14] MEDS: ACETAMINOPHEN 1000 MG/100 ML BAG IVPB SCH (07:15)
[2022-06-14] MEDS ORDERED: ASPIRIN 325 MG TABLET PO SCH (08:00)
[2022-06-14] MEDS: INSULIN SLIDING SCALE (NOVOLOG) 1 VIAL SQ SCH ×2 (08:10→13:26)
[2022-06-14 08:24] LABS: HEMATOCRIT 35.9 % (32.4-45.2); HEMOGLOBIN 12.4 G/dL (10.7-15.3); MCH 31.9 pg (25.7-33.7); MCHC 34.5 g/dl (32.0-36.0); MEAN CELL VOLUME 92.6 fl (80-96); MEAN PLT VOLUME 7.4 fl (7.5-11.1); PLATELET COUNT 196.2 10^3/uL (134-434); RBC 3.88 10^6/uL (3.60-5.2); RDW 14.3 % (11.6-15.6); WHITE BLOOD COUNT 7.4 10^3/uL (4.0-10.8)
[2022-06-14 08:30] LABS: CALCIUM 8.3 mg/dl (8.5-10); CREATININE 0.9 mg/dl (0.55-1.3)
[2022-06-14] MEDS ORDERED: BUPIVACAINE HCL/PF 0.5% (5 MG/ML) 30 ML VIAL IJ ONE (08:41)
[2022-06-14] MEDS ORDERED: DEXAMETHASONE SOD PHOSPHATE 10 MG/1 ML VIAL ONE (08:41)
[2022-06-14] MEDS: MULTIVITAMINS (DAILY MVI) TABLET (FP) PO SCH (09:34)
[2022-06-14] MEDS: SENNOSIDES/DOCUSATE COMBO (SENNA PLUS) TABLET (UD) PO SCH (09:35)
[2022-06-14] MEDS ORDERED: FUROSEMIDE 40 MG TABLET (FP) PO SCH (10:00)
[2022-06-14] MEDS ORDERED: ATENOLOL 50 MG TABLET (FP) PO SCH (10:00)
[2022-06-14] MEDS: oxyCODONE HCL 10 MG SUSTAINED ACTING TABLET PO SCH (13:25)
[2022-06-14] MEDS: FLUTICASONE/UMECLIDIN/VILANTER(100-62.5-25 TRELEGY ELLIPTA) INAHLER IH SCH (13:25)
== END 2022-06-14 14:40 | disposition home or self-care (01) | DRG 315 ==
LOC: FM/S 06:08
PROVIDERS: ADMIT Orthopaedic Surgery; ATTEND Orthopaedic Surgery
PROC: 0LS30ZZ Reposition Right Upper Arm Tendon, Open Approach (ICD-10-PCS; 2022-06-13)
PROC: 0RRJ00Z Replacement of Right Shoulder Joint with Reverse Ball and Socket Synthetic Substitute, Open Approach (ICD-10-PCS; principal; 2022-06-13 08:33)
DX: M19.011 Primary osteoarthritis, right shoulder (principal); M75.101 Unspecified rotator cuff tear or rupture of right shoulder, not specified as traumatic; M75.21 Bicipital tendinitis, right shoulder; E11.9 Type 2 diabetes mellitus without complications; I10 Essential (primary) hypertension; E78.5 Hyperlipidemia, unspecified; Z09 Encounter for follow-up examination after completed treatment for conditions other than malignant neoplasm; Z86.16 Personal history of COVID-19; G25.81 Restless legs syndrome; Z79.84 Long term (current) use of oral hypoglycemic drugs
CPT/HCPCS: 36415; 73030-TC-RT-FY; 80048; 82962; 85027; 88304-TC; 88311-TC; 94760; 97116-GP; 97162-GP; C1776; C1889; J1100

== ENCOUNTER 2022-06-15 18:15 | Inpatient (IN) | payer OTHER ==
[2022-06-15] MEDS ORDERED: SODIUM CHLORIDE 2,858 ML IV ONE (18:39)
[2022-06-15] MEDS ORDERED: CEFEPIME HCL/D5W 1 GM/50 ML BAG IVPB ONE (18:43)
[2022-06-15] MEDS ORDERED: CLINDAMYCIN 600MG PREMIX IVPB 600 MG/50 ML BAG IVPB ONE ×2 (18:43→19:01)
[2022-06-15] MEDS ORDERED: ACETAMINOPHEN 1000 MG/100 ML BAG IVPB ONE (18:59)
[2022-06-15] MEDS ORDERED: ACETAMINOPHEN INJECTION 100 ML IVPB ONE (19:01)
[2022-06-15 19:14] LABS: HEMATOCRIT 42.2 % (32.4-45.2); HEMOGLOBIN 14.8 G/dL (10.7-15.3); MCH 32.6 pg (25.7-33.7); MCHC 35.1 g/dl (32.0-36.0); MEAN CELL VOLUME 92.7 fl (80-96); MEAN PLT VOLUME 7.2 fl (7.5-11.1); PLATELET COUNT 215.9 10^3/uL (134-434); RBC 4.55 10^6/uL (3.60-5.2); RDW 14.6 % (11.6-15.6); WHITE BLOOD COUNT 8.2 10^3/uL (4.0-10.8)
[2022-06-15 19:20] LABS: INR 1.05 (0.83-1.09); PROTHROMBIN TIME (PATIENT) 12.1 SEC (9.7-13.0)
[2022-06-15 19:22] LABS: ACTIVATED PTT 28.6 SECONDS (25.2-36.5)
[2022-06-15 19:29] LABS: ALBUMIN 3.5 g/dl (3.4-5.0); CALCIUM 9.2 mg/dl (8.5-10); CREATININE 0.9 mg/dl (0.55-1.3); TOT PROT 6.4 g/dl (6.4-8.2)
[2022-06-15 19:52] LABS: PLATELET ESTIMATE ADEQUATE
[2022-06-15 20:04] LABS: VENOUS BASE EXCESS -0.3 mmol/L (-2-2); VENOUS O2 SATURATION 33.1 % (70-80); VENOUS PCO2 38.5 mmHg (38-52); VENOUS PH 7.413 (7.310-7.410)
[2022-06-15 20:27] LABS: EPITHELIAL CELLS FEW /hpf
[2022-06-15 20:42] LABS: LACTIC ACID 3.1 mmol/L (0.4-2.0)
[2022-06-15] MEDS ORDERED: methylPREDNISolone NA SUCC 125 MG/2 ML VIAL IVPB ONE (22:15)
[2022-06-15] MEDS ORDERED: methylPREDNISolone NA SUCC 125 MG/2 ML VIAL ONE (22:18)
[2022-06-16 03:30] VITALS: BMI 39.4
[2022-06-16 08:07] LABS: ALBUMIN 2.7 g/dl (3.4-5.0); BILIRUBIN,TOTAL 0.9 mg/dl (0.2-1); CALCIUM 8.1 mg/dl (8.5-10); CREATININE 0.7 mg/dl (0.55-1.3); TOT PROT 5.4 g/dl (6.4-8.2)
[2022-06-16 09:48] LABS: HEMATOCRIT 39.5 % (32.4-45.2); HEMOGLOBIN 13.1 GM/dL (10.7-15.3); MCH 30.3 pg (25.7-33.7); MEAN CELL VOLUME 91.6 fl (80-96); MEAN PLT VOLUME 7.6 fl (7.5-11.1); PLATELET COUNT 229 10^3/uL (134-434); RBC 4.32 M/mm3 (3.60-5.2); RDW 14.8 % (11.6-15.6); WHITE BLOOD COUNT 7.6 K/mm3 (4.0-10.0)
[2022-06-16] MEDS: LORATADINE 10 MG TABLET PO SCH (15:47)
[2022-06-16] MEDS: CLINDAMYCIN 300 MG PREMIX IVPB 300 MG/50 ML BAG IVPB SCH (17:05)
[2022-06-16] MEDS: PIPERACILLIN/TAZOB 3.375 GM 3.375 GM in DEXTROSE 5%-WATER - 50 ML IVPB SCH (17:06)
[2022-06-16] MEDS: ASPIRIN 325 MG TABLET PO SCH (20:11)
[2022-06-17] MEDS: CLINDAMYCIN 300 MG PREMIX IVPB 300 MG/50 ML BAG IVPB SCH (01:45)
[2022-06-17] MEDS: PIPERACILLIN/TAZOB 3.375 GM 3.375 GM in DEXTROSE 5%-WATER - 50 ML IVPB SCH ×2 (02:32→09:43)
[2022-06-17] MEDS ORDERED: hydrOXYzine PAMOATE 50 MG CAPSULE (FP) PO ONE (03:24)
[2022-06-17] MEDS ORDERED: hydrOXYzine PAMOATE 25 MG CAPSULE (FP) PO ONE (03:28)
[2022-06-17 08:14] LABS: ALBUMIN 2.5 g/dl (3.4-5.0); BILIRUBIN,TOTAL 1.2 mg/dl (0.2-1); CALCIUM 8.1 mg/dl (8.5-10); CREATININE 0.7 mg/dl (0.55-1.3); TOT PROT 4.9 g/dl (6.4-8.2)
[2022-06-17 09:42] LABS: BASO % 0.2 % (0-2.0); EOS % 7.8 % (0-4.5); HEMATOCRIT 33.5 % (32.4-45.2); HEMOGLOBIN 11.7 GM/dL (10.7-15.3); LYMPH % 13.7 % (8-40); MCH 31.7 pg (25.7-33.7); MCHC 34.9 g/dl (32.0-36.0); MEAN PLT VOLUME 7.8 fl (7.5-11.1); MONO % 4.8 % (3.8-10.2); NEUT % 73.5 % (42.8-82.8); PLATELET COUNT 265 10^3/uL (134-434); RBC 3.68 M/mm3 (3.60-5.2); RDW 14.6 % (11.6-15.6); WHITE BLOOD COUNT 5.8 K/mm3 (4.0-10.0)
[2022-06-17] MEDS: ASPIRIN 325 MG TABLET PO SCH (09:43)
[2022-06-17] MEDS: LORATADINE 10 MG TABLET PO SCH (09:43)
[2022-06-17] MEDS: PRAMIPEXOLE DIHYDROCHLORIDE 1 MG TABLET PO SCH ×2 (11:43→21:37)
[2022-06-18] MEDS: PRAMIPEXOLE DIHYDROCHLORIDE 1 MG TABLET PO SCH ×2 (06:22→21:17)
[2022-06-18] MEDS ORDERED: PRAMIPEXOLE DIHYDROCHLORIDE 1 MG TABLET PO SCH (07:00)
[2022-06-18] MEDS: ASPIRIN 325 MG TABLET PO SCH (09:48)
[2022-06-18] MEDS: LORATADINE 10 MG TABLET PO SCH (09:48)
[2022-06-18] MEDS ORDERED: FUROSEMIDE 40 MG/4 ML INJECTABLE VIAL IVPUSH ONE (10:11)
[2022-06-18] MEDS: FUROSEMIDE 40 MG TABLET (FP) PO SCH (11:25)
[2022-06-18] MEDS: predniSONE 20 MG TABLET (UD) PO SCH (11:25)
[2022-06-18 11:26] LABS: HEMATOCRIT 35.4 % (32.4-45.2); HEMOGLOBIN 12.5 G/dL (10.7-15.3); MCH 32.3 pg (25.7-33.7); MCHC 35.2 g/dl (32.0-36.0); MEAN PLT VOLUME 6.9 fl (7.5-11.1); PLATELET COUNT 212.9 10^3/uL (134-434); RBC 3.85 10^6/uL (3.60-5.2); RDW 15.1 % (11.6-15.6); WHITE BLOOD COUNT 5.2 10^3/uL (4.0-10.8)
[2022-06-18] MEDS: TRIAMCINOLONE ACET 0.1% OINT 15 GM TUBE TP SCH ×2 (11:31→21:18)
[2022-06-18 11:42] LABS: ALBUMIN 2.7 g/dl (3.4-5.0); BILIRUBIN,TOTAL 0.7 mg/dl (0.2-1); CALCIUM 8.4 mg/dl (8.5-10); CREATININE 0.7 mg/dl (0.55-1.3); TOT PROT 5.1 g/dl (6.4-8.2)
[2022-06-18 11:50] LABS: PLATELET ESTIMATE ADEQUATE
[2022-06-18 18:08] VITALS: RESP 18
[2022-06-18] MEDS: diphenhydrAMINE HCL 25 MG CAPSULE (FP) PO PRN (21:17)
[2022-06-19] MEDS: PRAMIPEXOLE DIHYDROCHLORIDE 1 MG TABLET PO SCH ×2 (06:41→21:08)
[2022-06-19 09:11] LABS: ALBUMIN 2.7 g/dl (3.4-5.0); BILIRUBIN,TOTAL 0.8 mg/dl (0.2-1); CALCIUM 8.5 mg/dl (8.5-10); CREATININE 0.6 mg/dl (0.55-1.3); TOT PROT 5.2 g/dl (6.4-8.2)
[2022-06-19] MEDS: predniSONE 20 MG TABLET (UD) PO SCH (09:25)
[2022-06-19] MEDS: ASPIRIN 325 MG TABLET PO SCH (09:25)
[2022-06-19] MEDS: LORATADINE 10 MG TABLET PO SCH (09:25)
[2022-06-19] MEDS: TRIAMCINOLONE ACET 0.1% OINT 15 GM TUBE TP SCH ×2 (09:30→21:09)
[2022-06-19] MEDS: FUROSEMIDE 40 MG TABLET (FP) PO SCH (10:40)
[2022-06-19 11:14] LABS: HEMOGLOBIN 11.7 GM/dL (10.7-15.3); MCH 31.3 pg (25.7-33.7); MCHC 34.4 g/dl (32.0-36.0); MEAN CELL VOLUME 91.1 fl (80-96); PLATELET COUNT 253 10^3/uL (134-434); RBC 3.73 M/mm3 (3.60-5.2); RDW 14.4 % (11.6-15.6); WHITE BLOOD COUNT 8.5 K/mm3 (4.0-10.0)
[2022-06-19 14:48] LABS: ANISOCYTOSIS 0; HELMET CELLS 0; HOWELL-JOLLY BODIES 0; MACROCYTOSIS 0; OVALOCYTE 0; ROULEAU 0; SICKELED CELLS 0; TARGET CELLS 0; TEAR DROP CELLS 0; TOXIC GRANULATION 0
[2022-06-19] MEDS: diphenhydrAMINE HCL 25 MG CAPSULE (FP) PO PRN (21:09)
[2022-06-20] MEDS: PRAMIPEXOLE DIHYDROCHLORIDE 1 MG TABLET PO SCH (06:33)
[2022-06-20 07:02] VITALS: BP 126/59; PULSE 77; TEMP 98.4
[2022-06-20] MEDS: FUROSEMIDE 40 MG TABLET (FP) PO SCH (09:10)
[2022-06-20] MEDS: ASPIRIN 325 MG TABLET PO SCH (09:10)
[2022-06-20] MEDS: predniSONE 20 MG TABLET (UD) PO SCH (09:10)
[2022-06-20] MEDS: LORATADINE 10 MG TABLET PO SCH (09:11)
[2022-06-20] MEDS: TRIAMCINOLONE ACET 0.1% OINT 15 GM TUBE TP SCH (09:11)
== END 2022-06-20 14:03 | disposition home or self-care (01) | DRG 721 ==
LOC: FER 18:15 → FM/S 06-16 00:43
PROVIDERS: ADMIT Internal Medicine
DX: T81.44XA Sepsis following a procedure, initial encounter (principal); A41.9 Sepsis, unspecified organism; I50.31 Acute diastolic (congestive) heart failure; Y83.9 Surgical procedure, unspecified as the cause of abnormal reaction of the patient, or of later complication, without mention of misadventure at the time of the procedure; E78.5 Hyperlipidemia, unspecified; E03.9 Hypothyroidism, unspecified; K21.9 Gastro-esophageal reflux disease without esophagitis; K76.0 Fatty (change of) liver, not elsewhere classified; Z68.39 Body mass index [BMI] 39.0-39.9, adult; E11.9 Type 2 diabetes mellitus without complications; E66.01 Morbid (severe) obesity due to excess calories; Y92.89 Other specified places as the place of occurrence of the external cause; I11.0 Hypertensive heart disease with heart failure
CPT/HCPCS: 0241U-QW; 36415; 71045-TC-FY; 73030-TC-RT-FY; 80053; 81003; 81015; 82553; 82785; 82803; 83605; 84484; 85025; 85027; 85610; 85651; 85730; 86140; 86850; 86900; 86901; 87040; 87077; 87086; 93005; 93970-TC; 97116-GP; 97162-GP; 99291

== ENCOUNTER → 2022-09-01 | Day surgery (SDC) | payer OTHER | END | disposition home or self-care (01) | LOC: JRADIR 10:08 | PROVIDERS: ATTEND Internal Medicine Endocrinology, Diabetes & Metabolism | PROC: 0G9G3ZX Drainage of Left Thyroid Gland Lobe, Percutaneous Approach, Diagnostic (ICD-10-PCS; principal; 2022-09-01) | DX: E04.1 Nontoxic single thyroid nodule (principal) | CPT/HCPCS: 10005; 76942; 88173; 88305-TC ==

== ENCOUNTER 2023-10-01 22:17 | Inpatient (IN) | payer OTHER ==
[2023-10-01 22:26] VITALS: BMI 35.7
[2023-10-01] MEDS ORDERED: SODIUM CHLORIDE IV ONE (22:38)
[2023-10-01] MEDS ORDERED: ACETAMINOPHEN 1000 MG/100 ML BAG IVPB ONE (22:42)
[2023-10-01] MEDS ORDERED: SODIUM CHLORIDE 0.9% 500 ML INFUS.BAG IV ONE (22:42)
[2023-10-01] MEDS ORDERED: ACETAMINOPHEN INJECTION 100 ML IVPB ONE (23:42)
[2023-10-01 23:47] LABS: BASO % 0.6 % (0-2.0); EOS % 0.4 % (0-4.5); HEMATOCRIT 42.6 % (32.4-45.2); HEMOGLOBIN 14.1 GM/dL (10.7-15.3); LYMPH % 24.5 % (8-40); MCHC 33.1 g/dl (32.0-36.0); MEAN CELL VOLUME 90.8 fl (80-96); MEAN PLT VOLUME 6.9 fl (7.5-11.1); MONO % 14.5 % (3.8-10.2); PLATELET COUNT 196 10^3/uL (134-434); RBC 4.69 M/mm3 (3.60-5.2); RDW 14.4 % (11.6-15.6); WHITE BLOOD COUNT 4.3 K/mm3 (4.0-10.0)
[2023-10-01 23:48] LABS: VENOUS BASE EXCESS 1.7 mmol/L (-2-2); VENOUS PCO2 43.7 mmHg (38-52); VENOUS PH 7.405 (7.310-7.410)
[2023-10-01 23:57] LABS: INR 1.12 (0.83-1.09)
[2023-10-01 23:59] LABS: ACTIVATED PTT 31.7 SECONDS (25.2-36.5)
[2023-10-02 00:08] LABS: POTASSIUM 4.2 mmol/L (3.5-5.1)
[2023-10-02 00:10] LABS: CALCIUM 8.7 mg/dL (8.5-10.1)
[2023-10-02 00:11] LABS: ALBUMIN 3.4 g/dl (3.4-5.0); BLOOD UREA NITROGEN 12.8 mg/dL (7-18)
[2023-10-02 00:14] LABS: CREATININE 0.8 mg/dL (0.55-1.3)
[2023-10-02 00:15] LABS: TOT PROT 6.9 g/dl (6.4-8.2)
[2023-10-02 00:35] LABS: URINE APPEARANCE Error; URINE BILIRUBIN NEGATIVE (NEGATIVE); URINE COLOR YELLOW; URINE GLUCOSE (UA) NEGATIVE (NEGATIVE); URINE KETONE TRACE (NEGATIVE); URINE LEUK ESTERASE NEGATIVE (NEGATIVE); URINE NITRITE NEGATIVE (NEGATIVE); URINE PROTEIN NEGATIVE (NEGATIVE)
[2023-10-02] MEDS ORDERED: SODIUM CHLORIDE 1,000 ML IV STA (01:53)
[2023-10-02] MEDS ORDERED: ACETAMINOPHEN 1000 MG/100 ML BAG IVPB PRN (02:16)
[2023-10-02] MEDS ORDERED: DEXAMETHASONE 4 MG TABLET (FP) PO SCH (02:17)
[2023-10-02] MEDS ORDERED: ALBUTEROL SO4 HFA INHALER IH PRN (02:22)
[2023-10-02] MEDS ORDERED: DEXAMETHASONE 4 MG TABLET (FP) ONE ×2 (02:43→10:13)
[2023-10-02] MEDS ORDERED: MIDODRINE HCL 5 MG TABLET ONE ×4 (02:44→17:51)
[2023-10-02] MEDS: MIDODRINE HCL 2.5 MG TABLET PO SCH ×4 (02:54→18:18)
[2023-10-02] MEDS ORDERED: BENZOCAINE/MENTHOL (CHLORASEPTIC ) LOZENGE MM PRN (02:59)
[2023-10-02] MEDS ORDERED: REMDESIVIR 200 MG in SODIUM CHLORIDE 250 ML IVPB ONE (03:00)
[2023-10-02] MEDS: LACTATED RINGERS SOLUTION 1,000 ML/1,000 ML INFUS.BAG IV SCH (03:36)
[2023-10-02] MEDS ORDERED: guaiFENesin/D-M SUGAR-FREE/ACLHOL-FREE 5 ML UNIT DOSE PO SCH (04:30)
[2023-10-02] MEDS ORDERED: guaiFENesin/D-M SUGAR-FREE/ACLHOL-FREE 5 ML UNIT DOSE PO PRN (04:44)
[2023-10-02] MEDS ORDERED: PATIENT'S OWN MEDICATION (NON-FORMULARY) (Clobetasol Propionate/Emoll [Clobetasol Emollien TP SCH (06:00)
[2023-10-02] MEDS: INSULIN SLIDING SCALE (NOVOLOG) 1 VIAL SQ SCH ×4 (06:03→22:47)
[2023-10-02 09:09] LABS: BASO % 0.4 % (0-2.0); EOS % 0.1 % (0-4.5); HEMATOCRIT 40.2 % (32.4-45.2); LYMPH % 28.1 % (8-40); MCH 29.8 pg (25.7-33.7); MCHC 32.5 g/dl (32.0-36.0); MEAN CELL VOLUME 91.7 fl (80-96); MEAN PLT VOLUME 6.8 fl (7.5-11.1); MONO % 5.6 % (3.8-10.2); NEUT % 65.8 % (42.8-82.8); PLATELET COUNT 180 10^3/uL (134-434); RBC 4.38 M/mm3 (3.60-5.2); RDW 14.1 % (11.6-15.6); WHITE BLOOD COUNT 3.3 K/mm3 (4.0-10.0)
[2023-10-02] MEDS ORDERED: ENOXAPARIN NA (PORCINE) 40 MG/0.4 ML DISP.SYRIN SQ SCH (10:00)
[2023-10-02 10:07] LABS: BLOOD UREA NITROGEN 11.6 mg/dL (7-18); CALCIUM 8.5 mg/dL (8.5-10.1); MAGNESIUM 2.1 mg/dL (1.8-2.4)
[2023-10-02 10:10] LABS: BILIRUBIN,TOTAL 0.7 mg/dL (0.2-1); CREATININE 0.6 mg/dL (0.55-1.3); PHOSPHOROUS 3.4 mg/dL (2.5-4.9); TOT PROT 6.2 g/dl (6.4-8.2)
[2023-10-02] MEDS ORDERED: ENOXAPARIN NA (PORCINE) 40 MG/0.4 ML DISP.SYRIN SQ ONE (10:13)
[2023-10-02] MEDS: ENOXAPARIN NA (PORCINE) 40 MG/0.4 ML DISP.SYRIN SQ SCH (10:48)
[2023-10-02] MEDS: DEXAMETHASONE 2 MG TABLET PO SCH (10:49)
[2023-10-02 11:40] LABS: ERYTHROCYTE SEDIMENTATION RATE 20 mm/hr (0-30)
[2023-10-02] MEDS ORDERED: INSULIN (NOVOLOG) ASPART 100 UNITS/ML 10ML VIAL ONE (22:43)
[2023-10-02] MEDS: ROSUVASTATIN CA 5 MG TABLET PO SCH (22:48)
[2023-10-02] MEDS: PRAMIPEXOLE DIHYDROCHLORIDE 1 MG TABLET PO SCH (23:59)
[2023-10-03] MEDS: LACTATED RINGERS SOLUTION 1,000 ML/1,000 ML INFUS.BAG IV SCH (03:21)
[2023-10-03] MEDS: INSULIN SLIDING SCALE (NOVOLOG) 1 VIAL SQ SCH ×4 (06:49→22:20)
[2023-10-03 10:23] LABS: BASO % 0.1 % (0-2.0); HEMATOCRIT 39.8 % (32.4-45.2); HEMOGLOBIN 13.2 GM/dL (10.7-15.3); LYMPH % 19.4 % (8-40); MCHC 33.1 g/dl (32.0-36.0); MEAN CELL VOLUME 90.8 fl (80-96); MONO % 5.9 % (3.8-10.2); NEUT % 74.6 % (42.8-82.8); PLATELET COUNT 205 10^3/uL (134-434); RBC 4.38 M/mm3 (3.60-5.2); RDW 14.1 % (11.6-15.6); WHITE BLOOD COUNT 7.5 K/mm3 (4.0-10.0)
[2023-10-03] MEDS: MIDODRINE HCL 2.5 MG TABLET PO SCH ×3 (10:42→17:12)
[2023-10-03] MEDS: DEXAMETHASONE 2 MG TABLET PO SCH (10:43)
[2023-10-03] MEDS: REMDESIVIR 100 MG in SODIUM CHLORIDE 250 ML IVPB SCH (10:43)
[2023-10-03] MEDS: ENOXAPARIN NA (PORCINE) 40 MG/0.4 ML DISP.SYRIN SQ SCH (10:43)
[2023-10-03 10:58] LABS: POTASSIUM 4.3 mmol/L (3.5-5.1)
[2023-10-03 11:13] LABS: ALBUMIN 2.8 g/dl (3.4-5.0); CALCIUM 9.1 mg/dL (8.5-10.1)
[2023-10-03 11:14] LABS: BLOOD UREA NITROGEN 12.1 mg/dL (7-18)
[2023-10-03 11:16] LABS: CREATININE 0.7 mg/dL (0.55-1.3)
[2023-10-03 11:18] LABS: PHOSPHOROUS 3.1 mg/dL (2.5-4.9)
[2023-10-03 11:19] LABS: BILIRUBIN,TOTAL 0.6 mg/dL (0.2-1)
[2023-10-03 15:34] VITALS: RESP 18
[2023-10-03] MEDS: PRAMIPEXOLE DIHYDROCHLORIDE 1 MG TABLET PO SCH (22:09)
[2023-10-03] MEDS: ROSUVASTATIN CA 5 MG TABLET PO SCH (22:09)
[2023-10-04] MEDS: INSULIN SLIDING SCALE (NOVOLOG) 1 VIAL SQ SCH ×4 (07:04→23:08)
[2023-10-04] MEDS: ENOXAPARIN NA (PORCINE) 40 MG/0.4 ML DISP.SYRIN SQ SCH (09:28)
[2023-10-04] MEDS: MIDODRINE HCL 2.5 MG TABLET PO SCH ×3 (09:28→17:48)
[2023-10-04] MEDS: REMDESIVIR 100 MG in SODIUM CHLORIDE 250 ML IVPB SCH (09:29)
[2023-10-04] MEDS: DEXAMETHASONE 2 MG TABLET PO SCH (09:30)
[2023-10-04 10:30] LABS: BASO % 0.2 % (0-2.0); EOS % 0.1 % (0-4.5); HEMATOCRIT 37.5 % (32.4-45.2); HEMOGLOBIN 12.7 GM/dL (10.7-15.3); LYMPH % 24.6 % (8-40); MCH 30.2 pg (25.7-33.7); MCHC 33.8 g/dl (32.0-36.0); MEAN CELL VOLUME 89.4 fl (80-96); MEAN PLT VOLUME 6.7 fl (7.5-11.1); MONO % 6.8 % (3.8-10.2); NEUT % 68.3 % (42.8-82.8); PLATELET COUNT 191 10^3/uL (134-434); RBC 4.19 M/mm3 (3.60-5.2); RDW 14.6 % (11.6-15.6)
[2023-10-04 10:46] LABS: POTASSIUM 3.5 mmol/L (3.5-5.1)
[2023-10-04 10:48] LABS: ALBUMIN 2.7 g/dl (3.4-5.0); CALCIUM 8.6 mg/dL (8.5-10.1)
[2023-10-04 10:49] LABS: BLOOD UREA NITROGEN 16.1 mg/dL (7-18); MAGNESIUM 2.1 mg/dL (1.8-2.4)
[2023-10-04 10:52] LABS: CREATININE 0.6 mg/dL (0.55-1.3)
[2023-10-04 10:53] LABS: BILIRUBIN,TOTAL 0.4 mg/dL (0.2-1); TOT PROT 5.7 g/dl (6.4-8.2)
[2023-10-04] MEDS: PRAMIPEXOLE DIHYDROCHLORIDE 1 MG TABLET PO SCH (23:07)
[2023-10-04] MEDS: ROSUVASTATIN CA 5 MG TABLET PO SCH (23:07)
[2023-10-05] MEDS: INSULIN SLIDING SCALE (NOVOLOG) 1 VIAL SQ SCH (08:15)
[2023-10-05 09:26] VITALS: BP 138/56; PULSE 66; TEMP 97.8
[2023-10-05] MEDS: ENOXAPARIN NA (PORCINE) 40 MG/0.4 ML DISP.SYRIN SQ SCH (10:08)
[2023-10-05] MEDS: REMDESIVIR 100 MG in SODIUM CHLORIDE 250 ML IVPB SCH (10:08)
[2023-10-05] MEDS: MIDODRINE HCL 2.5 MG TABLET PO SCH (10:08)
[2023-10-05 10:19] LABS: BASO % 0.3 % (0-2.0); EOS % 0.1 % (0-4.5); HEMATOCRIT 39.4 % (32.4-45.2); HEMOGLOBIN 13.3 GM/dL (10.7-15.3); LYMPH % 32.2 % (8-40); MCH 30.4 pg (25.7-33.7); MCHC 33.7 g/dl (32.0-36.0); MEAN CELL VOLUME 90.2 fl (80-96); MEAN PLT VOLUME 7.3 fl (7.5-11.1); MONO % 7.4 % (3.8-10.2); PLATELET COUNT 207 10^3/uL (134-434); RBC 4.37 M/mm3 (3.60-5.2); RDW 14.2 % (11.6-15.6); WHITE BLOOD COUNT 6.3 K/mm3 (4.0-10.0)
[2023-10-05 10:30] LABS: POTASSIUM 3.7 mmol/L (3.5-5.1)
[2023-10-05 11:01] LABS: CALCIUM 9.4 mg/dL (8.5-10.1)
[2023-10-05 11:02] LABS: BLOOD UREA NITROGEN 15.4 mg/dL (7-18)
[2023-10-05 11:05] LABS: CREATININE 0.7 mg/dL (0.55-1.3)
[2023-10-05 11:06] LABS: BILIRUBIN,TOTAL 1.1 mg/dL (0.2-1); TOT PROT 6.3 g/dl (6.4-8.2)
[2023-10-05] MEDS: DEXAMETHASONE 2 MG TABLET PO SCH (11:40)
== END 2023-10-05 13:54 | disposition home or self-care (01) | DRG 179 ==
LOC: JER 22:17 → JERBED 10-02 00:47 → J8W 10-02 19:15
PROVIDERS: ADMIT Internal Medicine; ATTEND Nurse Practitioner Family
PROC: XW033E5 Introduction of Remdesivir Anti-infective into Peripheral Vein, Percutaneous Approach, New Technology Group 5 (ICD-10-PCS; principal; 2023-10-02)
DX: U07.1 COVID-19 (principal); K21.9 Gastro-esophageal reflux disease without esophagitis; E03.9 Hypothyroidism, unspecified; K76.0 Fatty (change of) liver, not elsewhere classified; K74.00 Hepatic fibrosis, unspecified; R09.02 Hypoxemia; I10 Essential (primary) hypertension; E78.5 Hyperlipidemia, unspecified; R55 Syncope and collapse; L40.50 Arthropathic psoriasis, unspecified; G25.81 Restless legs syndrome; L40.9 Psoriasis, unspecified; E66.9 Obesity, unspecified; Z68.35 Body mass index [BMI] 35.0-35.9, adult; Z96.653 Presence of artificial knee joint, bilateral
CPT/HCPCS: 0241U-QW; 36415; 71045-TC-FY; 80053; 81003; 82550; 82553; 82803; 82962; 83605; 83735; 84100; 84484; 85025; 85610; 85651; 85730; 86140; 86850; 86900; 86901; 87040; 87086; 93005; 93010; 97116-GP; 97161-GP; 99285-25; J0248

== ENCOUNTER 2023-10-10 14:03 | Emergency (ER) | payer OTHER ==
[2023-10-10] MEDS ORDERED: ACETAMINOPHEN 325 MG TABLET (FP) PO ONE (14:39)
[2023-10-10 16:16] VITALS: BP 137/66; PULSE 78; RESP 16; TEMP 99.1; BMI 36.1
== END 2023-10-10 16:44 | disposition home or self-care (01) ==
LOC: FER 14:03
DX: L03.115 Cellulitis of right lower limb (principal); R22.41 Localized swelling, mass and lump, right lower limb
CPT/HCPCS: 93971-TC; 99284-25

== ENCOUNTER 2024-09-18 06:07 | Day surgery (SDC) | payer OTHER ==
[2024-09-16 16:58] VITALS: BMI 34.0
[2024-09-18] MEDS ORDERED: SUCCINYLCHOLINE CHLORIDE 200 MG/10 ML SYRINGE ONE (07:14)
[2024-09-18] MEDS ORDERED: PROPOFOL 20 ML ONE (07:14)
[2024-09-18] MEDS ORDERED: MIDAZOLAM HCL 2 MG/2 ML SINGLE DOSE VIAL ONE (07:14)
[2024-09-18] MEDS ORDERED: TRANEXAMIC ACID 1000 MG/10 ML VIAL ONE (07:27)
[2024-09-18] MEDS ORDERED: BUPIVACAINE HCL/PF 0.5% (5MG/ML) 10 ML VIAL ONE (07:28)
[2024-09-18] MEDS ORDERED: BUPIVACAINE LIPOSOME/PF (EXPAREL) 266 MG/20 ML VIAL ONE (07:28)
[2024-09-18] MEDS ORDERED: ROCURONIUM BROMIDE 50 MG/5 ML SYRINGE ONE (08:31)
[2024-09-18] MEDS ORDERED: ceFAZolin SODIUM 1 GM VIAL ONE (08:33)
[2024-09-18] MEDS ORDERED: ONDANSETRON 4 MG/2 ML VIAL ONE ×2 (09:46→11:55)
[2024-09-18] MEDS ORDERED: DEXAMETHASONE SOD PHOSPHATE 4 MG/1 ML VIAL ONE (09:46)
[2024-09-18] MEDS ORDERED: oxyCODONE HCL 5 MG TABLET PO PRN (11:06)
[2024-09-18] MEDS ORDERED: ONDANSETRON 4 MG/2 ML VIAL IVPUSH PRN ×2 (11:06→12:16)
[2024-09-18] MEDS ORDERED: ACETAMINOPHEN INJECTION 100 ML ONE (11:09)
[2024-09-18] MEDS ORDERED: KETOROLAC TROMETHAMINE 30 MG/1 ML VIAL ONE (11:56)
[2024-09-18] MEDS ORDERED: MAG HYDROX/AL HYDROX/SIMETH 30 ML UNIT-DOSE CUP PO PRN (12:16)
[2024-09-18] MEDS ORDERED: [UNRECOGNIZED DRUG - OTHER] SQ SCH (12:45)
[2024-09-18] MEDS ORDERED: SECUKINUMAB 150 MG/ML SQ SCH (12:45)
[2024-09-18] MEDS: SODIUM CHLORIDE 1,000 ML IV SCH (15:41)
[2024-09-18] MEDS: LACTATED RINGERS SOLUTION 1,000 ML IV SCH (15:42)
[2024-09-18] MEDS: metFORMIN HCL 500 MG TABLET (FP) PO SCH (17:38)
[2024-09-18] MEDS: ACETAMINOPHEN 500 MG TABLET (FP) PO SCH (17:38)
[2024-09-18] MEDS: CEFAZOLIN 2 GM/D5W 2 GM/50 ML ML IVPB SCH (17:38)
[2024-09-18] MEDS: PRAMIPEXOLE DIHYDROCHLORIDE 1 MG TABLET PO ONE (18:56)
[2024-09-18] MEDS: FUROSEMIDE 40 MG TABLET (FP) PO SCH (21:28)
[2024-09-18] MEDS: oxyCODONE HCL 10 MG SUSTAINED ACTING TABLET PO SCH (21:29)
[2024-09-18] MEDS: ROSUVASTATIN CA 5 MG TABLET PO SCH (21:30)
[2024-09-18] MEDS: SENNOSIDES/DOCUSATE COMBO (SENNA PLUS) TABLET (UD) PO SCH (21:30)
[2024-09-18] MEDS: TOPIRAMATE 25 MG TABLET PO SCH (21:30)
[2024-09-19 07:52] LABS: HEMATOCRIT 36.2 % (32.4-45.2); HEMOGLOBIN 11.8 G/dL (10.7-15.3); MCH 30.5 pg (25.7-33.7); MCHC 32.6 g/dl (32.0-36.0); MEAN CELL VOLUME 93.7 fl (80-96); MEAN PLT VOLUME 7.8 fl (7.5-11.1); PLATELET COUNT 188.4 10^3/uL (134-434); RBC 3.86 10^6/uL (3.60-5.2)
[2024-09-19 08:22] LABS: CALCIUM 8.9 mg/dl (8.5-10.1); CREATININE 0.8 mg/dl (0.6-1.3); POTASSIUM 4.7 mmol/L (3.5-5.1)
[2024-09-19] MEDS: ASPIRIN COATED 81 MG TABLET.EC PO SCH (09:54)
[2024-09-19] MEDS: MULTIVITAMINS (DAILY MVI) TABLET (FP) PO SCH (09:54)
[2024-09-19] MEDS: CHOLECALCIFEROL (VIT D3) 1,000 UNIT (25 MCG) TABLET PO SCH (09:54)
[2024-09-19] MEDS: PANTOPRAZOLE 40 MG TABLET PO SCH (09:54)
[2024-09-19] MEDS: ATENOLOL 50 MG TABLET (FP) PO SCH (09:54)
[2024-09-19] MEDS: FLUTICASONE PROP 0.05% 16 GM NASAL SPRAY NS SCH ×2 (10:08→10:13)
[2024-09-19] MEDS: FLUTICASONE/UMECLIDIN/VILANTER(100-62.5-25 TRELEGY ELLIPTA) INAHLER IH SCH (10:09)
[2024-09-19] MEDS: SODIUM CHLORIDE 0.9% 250 ML INFUS.BAG IV ONE (11:05)
[2024-09-19] MEDS: oxyCODONE HCL 5 MG TABLET PO PRN (13:28)
[2024-09-19] MEDS: DOXYCYCLINE HYCLATE 100 MG CAPSULE PO SCH (17:15)
[2024-09-19] MEDS: PRAMIPEXOLE DIHYDROCHLORIDE 1 MG TABLET PO SCH (22:10)
[2024-09-19] MEDS: traMADol HCL 50 MG TABLET PO PRN (22:10)
[2024-09-20 09:05] LABS: ALBUMIN 3.2 g/dl (3.4-5.0); BILIRUBIN,TOTAL 0.9 mg/dl (0.2-1); CALCIUM 8.5 mg/dl (8.5-10.1); CREATININE 0.8 mg/dl (0.6-1.3); POTASSIUM 4.1 mmol/L (3.5-5.1); TOT PROT 5.4 g/dl (6.4-8.2)
[2024-09-20 09:40] LABS: BASO % 0.2 % (0-2.0); HEMATOCRIT 36.3 % (32.4-45.2); HEMOGLOBIN 11.9 GM/dL (10.7-15.3); MCH 30.8 pg (25.7-33.7); MCHC 32.8 g/dl (32.0-36.0); MEAN CELL VOLUME 93.6 fl (80-96); MEAN PLT VOLUME 7.4 fl (7.5-11.1); MONO % 4.7 % (3.8-10.2); NEUT % 83.1 % (42.8-82.8); PLATELET COUNT 201 10^3/uL (134-434); RBC 3.88 M/mm3 (3.60-5.2); RDW 13.3 % (11.6-15.6); WHITE BLOOD COUNT 7.3 K/mm3 (4.0-10.0)
[2024-09-20 10:57] VITALS: TEMP 97.7
[2024-09-20] MEDS ORDERED: oxyCODONE HCL 5 MG TABLET PO PRN (11:34)
[2024-09-20] MEDS ORDERED: ACETAMINOPHEN 500 MG TABLET (FP) PO PRN (11:34)
[2024-09-20] MEDS ORDERED: traMADol HCL 50 MG TABLET PO PRN (11:35)
[2024-09-20 15:27] VITALS: BP 111/59; PULSE 70; RESP 16
[2024-09-21] MEDS ORDERED: ATENOLOL 25 MG TABLET (FP) PO SCH (10:00)
== END 2024-09-20 14:58 | disposition short-term general hospital (02) ==
LOC: SUATTDRO 06:07 → FASUSAT 06:07 → FM/S 15:08 → FASUSAT 09-20 14:58
PROC: 0RRK00Z Replacement of Left Shoulder Joint with Reverse Ball and Socket Synthetic Substitute, Open Approach (ICD-10-PCS; 2024-09-18)
PROC: 0RPK0JZ Removal of Synthetic Substitute from Left Shoulder Joint, Open Approach (ICD-10-PCS; principal; 2024-09-18 09:03)
DX: T84.098A Other mechanical complication of other internal joint prosthesis, initial encounter (principal); M75.102 Unspecified rotator cuff tear or rupture of left shoulder, not specified as traumatic; Y79.2 Prosthetic and other implants, materials and accessory orthopedic devices associated with adverse incidents; Y92.9 Unspecified place or not applicable
CPT/HCPCS: 23474; C1776; 36415; 73030-TC-LT-FY; 80048; 80053; 82962; 85025; 85027; 87070; 87075; 87205; 87635; 88300-TC; 94760; 97010-GP; 97116-GP; 97162-GP; C1713; C1757; J0131